=== PATIENT | male | born 1950 | race Caucasian/White ===

== ENCOUNTER 2017-06-11 08:05 | Emergency (ER) | payer MEDICARE, OTHER ==
--- NOTE | 2017-06-11 08:38 | EDM.PDOC ---
ED HPI GENERAL MEDICAL PROBLEM - General Chief Complaint: Respiratory Problem Stated Complaint: [facility] Time Seen by Provider: 06/11/17 08:08 Source of Information: Reports: Patient, Family, Other (His sister who looks after him is here) History Limitations: Reports: No Limitations - History of Present Illness INITIAL COMMENTS - FREE TEXT/NARRATIVE: This is a 67-year-old male. He lives in [place] [facility] [facility] [place]. Apparently he has a history of dementia and anxiety. This morning he says he had a difficult time sleeping last night he was up and down all night and he decided this morning to go ahead and dressed so it put on his shirt and while he was putting on his pants he became very short of breath. He then started coughing and had some midsternal chest pain. The staff tried to calm him down and they called the ambulance since he could not be calmed and with the ambulance arrived he is chest pain was resolved he was still anxious and short of breath but his pulse ox was 96% on room air. According to the sister he had gained some weight recently thought to be water weight and he is getting an extra 40 mg of Lasix for the last several days to get his weight down. The sister believes that his good weight or dry weight is about 270 and last Monday he weight 287. Patient states he does have swelling in his lower extremities and the noted to have some mild erythema but they do not seem to be painful on palpation. They've been trying to avoid any sort of medication for his anxiety since he has difficulty in his balance or they have not given him anything such as Ativan or Xanax. When he arrived to the ER he appeared to be doing well he was not short of breath had no chest pain and seemed to be his normal self. The sister does state that he has dementia and hasn't noticed any recent change. He is a poor historian. - Related Data Allergies Allergy/AdvReac Type Severity Reaction Status Date / Time No Known Allergies Allergy Verified 06/11/17 08:12 Home Meds: Home Meds Acetaminophen [Tylenol Extra Strength] 1,000 mg PO BID 06/11/17 [History] Allopurinol [Zyloprim] 300 mg PO DAILY 06/11/17 [History] Ascorbic Acid [Vitamin C] 1 tab PO DAILY 06/11/17 [History] Ca/D3/Mag Ox/Zinc/Psychiatric Np/Derik/Bor [Calcium 600-D3 Plus Caplet] 1 tab PO DAILY 06/11 [History] Calcitriol 0.5 mg PO QPM 06/11/17 [History] Carvedilol [Coreg] 25 mg PO BID 06/11/17 [History] Celecoxib [CeleBREX] 20 mg PO DAILY 06/11/17 [History] Dicyclomine [Bentyl] 20 mg PO QID 06/11/17 [History] Donepezil [Aricept] 5 mg PO DAILY 06/11/17 [History] Escitalopram [Lexapro] 20 mg PO DAILY 06/11/17 [History] Fe Gluc/Lysin Hc/E/Bcomp&C/Zn [Apetigen-Plus] 1 tab PO DAILY 06/11/17 [History] Fenofibrate Nanocrystallized [Tricor] 145 mg PO DAILY 06/11/17 [History] Fish Oil/Nichols-3 Fatty Acids [Fish Oil 1,000 MG] 1 cap PO DAILY 06/11/17 [ History] Furosemide [Lasix] 40 mg PO DAILY 06/11/17 [History] Levothyroxine [Synthroid] 10 mcg PO ASDIRECTED 06/11/17 [History] Levothyroxine [Synthroid] 88 mcg PO MOTUWETHFR 06/11/17 [History] Melatonin/Pyridoxine HCl (B6) [Melatonin 5 mg Tablet] 5 mg PO QPM 06/11/17 [ History] Omeprazole 40 mg PO DAILY 06/11/17 [History] Phenytoin Sodium Extended [Dilantin] 400 mg PO QPM 06/11/17 [History] Potassium Chloride [Klor-Con M20] 40 meq PO BID 06/11/17 [History] Psyllium Husk [Metamucil] 1 tbsp PO QAM 06/11/17 [History] Warfarin [Coumadin] 5 mg PO FR 06/11/17 [History] Warfarin [Coumadin] 7.5 mg PO SUMOTUWETHFR 06/11/17 [History] atorvaSTATin [Lipitor] 50 mg PO DAILY 06/11/17 [History] ED ROS GENERAL - Review of Systems Review Of Systems: See Below (Much of the review of systems as from the sister) Constitutional: Denies: Fever, Chills, Diaphoresis HEENT: Reports: No Symptoms Respiratory: Reports: Shortness of Breath, Cough. Denies: Wheezing, Sputum Cardiovascular: Reports: Chest Pain, Dyspnea on Exertion, Edema, Other (Not certain whether he has orthopnea that might have been the reason he was up and down all last night, patient does have a pacemaker according of the EKG looks like a ventricular pacemaker.) Endocrine: Reports: No Symptoms GI/Abdominal: Denies: Abdominal Pain, Diarrhea, Nausea, Vomiting : Reports: No Symptoms Musculoskeletal: Reports: No Symptoms Skin: Reports: Other (He does have some erythema of his lower legs and some abrasions on his right lower leg and swelling) Neurological: Reports: Confusion, Trouble Speaking (He is able to talk fluently but he is not able to string his sentences and keep train of thought very well) , Difficulty Walking, Other (He does have problems with balance) Psychiatric: Reports: Anxiety, Confusion Hematologic/Lymphatic: Reports: No Symptoms ED EXAM, GENERAL - Physical Exam Exam: See Below (Pulse ox is 98-99% on room air in the ER) Exam Limited By: Other (Patient's history and exam is slightly limited by his dementia but he seems to answer questions appropriately) General Appearance: Alert, WD/WN, No Apparent Distress Eye Exam: Bilateral Eye: Normal Inspection Ears: Normal External Exam, Normal Canal, Normal TMs Nose: Normal Inspection. No: Nasal Drainage, Clear Rhinorrhea Throat/Mouth: Normal Inspection, Normal Lips, Normal Voice, No Airway Compromise Head: Normocephalic Neck: Supple Respiratory/Chest: No Respiratory Distress, Lungs Clear, Normal Breath Sounds, Other (I do not hear any wheezing or crackles in the bases bilaterally) Cardiovascular: Regular Rate, Rhythm. No: No JVD GI/Abdominal: Soft, Non-Tender. No: Guarding, Rigid, Rebound, Tender Back Exam: Other (He is able to move around and denies any back pain) Extremities: Other (Upper extremities appear to be without abnormality, his lower extremities his lower legs bilaterally and have sort of a vasculitis appearance and some mild redness and there is swelling noted bilaterally) Neurological: Alert, Other (He is essentially oriented to person and people, he knows he is in the ER but he is not certain where any is not certain about the time of the day) Psychiatric: Anxious, Other (During the interview he essentially keeps his eyes shut when he started talking and doesn't really want to look at any one) Skin Exam: Warm, Dry EKG INTERPRETATION EKG Date: 06/11/17 Time: 08:12 EKG Interpretation Comments: The EKG shows a ventricular paced rhythm. There is no atrial fibrillation atrial flutter noted, I cannot tell due to the paced rhythm any ST or T-wave changes. There are no other acute findings. Course - Vital Signs Last Recorded V/S: Last Vital Signs Temp 97.4 F 06/11/17 08:15 Pulse 75 06/11/17 08:15 Resp 18 06/11/17 08:15 BP 183/101 H 06/11/17 08:15 Pulse Ox 98 06/11/17 08:15 - Orders/Labs/Meds Orders: Active Orders 24 hr Category Date Time Status EKG 12 Lead [EKG Documentation Completion] [RC] STAT Care 06/11/17 08:50 Active CXR [Chest 1V Frontal] [CR] Stat Exams 06/11/17 08:43 Taken Labs: Laboratory Tests 06/11/17 06/11/17 06/11/17 Range/Units 08:55 08:55 08:55 WBC 5.92 (4.23-9.07) K/mm3 RBC 4.31 L (4.63-6.08) M/mm3 Hgb 13.8 (13.7-17.5) gm/L Hct 41.1 (40.1-51.0) % MCV 95.4 H (79.0-92.2) fl MCH 32.0 (25.7-32.2) pg MCHC 33.6 (32.2-35.5) g/dl RDW Std Deviation 46.9 H (35.1-43.9) fL Plt Count 169 (163-337) K/mm3 MPV 10.0 (9.4-12.3) fl Neut % (Auto) 61.4 (34.0-67.9) % Lymph % (Auto) 19.6 L (21.8-53.1) % [place] % (Auto) 12.8 H (5.3-12.2) % Eos % (Auto) 5.2 (0.8-7.0) Baso % (Auto) 0.5 (0.1-1.2) % Neut # (Auto) 3.63 (1.78-5.38) K/mm3 Lymph # (Auto) 1.16 L (1.32-3.57) K/mm3 [place] # (Auto) 0.76 (0.30-0.82) K/mm3 Eos # (Auto) 0.31 (0.04-0.54) K/mm3 Baso # (Auto) 0.03 (0.01-0.08) K/mm3 PT 41.5 H (8.0-13.0) SECONDS INR 3.51 Sodium 143 (136-145) mEq/L Potassium 4.1 (3.5-5.1) mEq/L Chloride 104 (98-107) mEq/L Carbon Dioxide 30 (21-32) mEq/L Anion Gap 13.1 (5-15) BUN 34 H (7-18) mg/dL Creatinine 1.1 (0.7-1.3) mg/dL Est Cr Clr Drug Dosing 73.65 mL/min Estimated GFR (MDRD) > 60 (>60) mL/min BUN/Creatinine Ratio 30.9 H (14-18) Glucose 104 (80-115) mg/dL Calcium 9.3 (8.5-10.1) mg/dL Total Bilirubin 0.2 (0.2-1.0) mg/dL AST 18 (15-37) U/L ALT 27 (16-63) U/L Alkaline Phosphatase 82 (46-116) U/L Troponin I 0.017 (0.00-0.056) ng/mL NT-Pro-B Natriuret Pep 309 H (0-125) pg/mL Total Protein 7.6 (6.4-8.2) g/dl Albumin 3.9 (3.4-5.0) g/dl Globulin 3.7 gm/dL Albumin/Globulin Ratio 1.1 (1-2) Phenytoin (10.0-20.0) ug/mL 06/11/17 Range/Units 08:55 WBC (4.23-9.07) K/mm3 RBC (4.63-6.08) M/mm3 Hgb (13.7-17.5) gm/L Hct (40.1-51.0) % MCV (79.0-92.2) fl MCH (25.7-32.2) pg MCHC (32.2-35.5) g/dl RDW Std Deviation (35.1-43.9) fL Plt Count (163-337) K/mm3 MPV (9.4-12.3) fl Neut % (Auto) (34.0-67.9) % Lymph % (Auto) (21.8-53.1) % [place] % (Auto) (5.3-12.2) % Eos % (Auto) (0.8-7.0) Baso % (Auto) (0.1-1.2) % Neut # (Auto) (1.78-5.38) K/mm3 Lymph # (Auto) (1.32-3.57) K/mm3 [place] # (Auto) (0.30-0.82) K/mm3 Eos # (Auto) (0.04-0.54) K/mm3 Baso # (Auto) (0.01-0.08) K/mm3 PT (8.0-13.0) SECONDS INR Sodium (136-145) mEq/L Potassium (3.5-5.1) mEq/L Chloride (98-107) mEq/L Carbon Dioxide (21-32) mEq/L Anion Gap (5-15) BUN (7-18) mg/dL Creatinine (0.7-1.3) mg/dL Est Cr Clr Drug Dosing mL/min Estimated GFR (MDRD) (>60) mL/min BUN/Creatinine Ratio (14-18) Glucose (80-115) mg/dL Calcium (8.5-10.1) mg/dL Total Bilirubin (0.2-1.0) mg/dL AST (15-37) U/L ALT (16-63) U/L Alkaline Phosphatase (46-116) U/L Troponin I (0.00-0.056) ng/mL NT-Pro-B Natriuret Pep (0-125) pg/mL Total Protein (6.4-8.2) g/dl Albumin (3.4-5.0) g/dl Globulin gm/dL Albumin/Globulin Ratio (1-2) Phenytoin 8.0 L (10.0-20.0) ug/mL - Radiology Interpretation Free Text/Narrative:: Chest x-ray is a poor inspiratory film I do not see any acute infiltrates or congestive heart failure. - Re-Assessments/Exams Free Text/Narrative Re-Assessment/Exam: 06/11/17 10:36 I spoke to the sister and the patient regarding the lab work. His cardiac enzyme was normal. He did have a slight elevation in his BNP suggesting that he is fluid overloaded but he does not appear to be in congestive heart failure. I encouraged her to continue with the extra Lasix a day. I will let them go back to the assisted living. 06/11/17 11:19 The INR is slightly elevated and the Dilantin is slightly low but there does not appear to be any acute findings. I spoke to the patient and the sister regarding these results. Departure - Departure Time of Disposition: 10:37 Disposition: Home, Self-Care 01 Condition: Fair Clinical Impression: Shortness of breath, Anxiety, generalized Fluid overload, unspecified Qualifiers: Hypervolemia type: other Qualified Code(s): E87.79 - Other fluid overload - Discharge Information Referrals: Crystal Galdamez [employer] [Primary Care Provider] - Forms: ED Department Discharge Additional Instructions: Continue with the extra 40 mg of Lasix daily, follow-up with his family physician this week for recheck, if there is any further acute problems return to the ER. - My Orders Last 24 Hours: My Active Orders 06/11/17 08:43 CXR [Chest 1V Frontal] [CR] Stat 06/11/17 08:50 EKG 12 Lead [EKG Documentation Completion] [RC] STAT - Assessment/Plan Last 24 Hours: My Active Orders 06/11/17 08:43 CXR [Chest 1V Frontal] [CR] Stat 06/11/17 08:50 EKG 12 Lead [EKG Documentation Completion] [RC] STAT
--- NOTE | 2017-06-11 16:54 | CR ---
Chest: Portable view of the chest was obtained. Comparison: Prior chest x-ray of 03/28/16. Heart is enlarged. AICD is present. Lungs are clear. Bony structures are grossly intact. Impression: 1. Stable cardiomegaly and AICD. 2. Nothing acute is appreciated on portable chest x-ray. Diagnostic code #2
== END 2017-06-11 11:35 | disposition home or self-care (01) ==
LOC: JD.ED 08:05 → SUPCPDRO 08:05 → JD.ED 11:35
DX: F41.9 Anxiety disorder, unspecified (principal); E87.79 Other fluid overload; F03.90 Unspecified dementia, unspecified severity, without behavioral disturbance, psychotic disturbance, mood disturbance, and anxiety; Z79.01 Long term (current) use of anticoagulants; Z79.899 Other long term (current) drug therapy
CPT/HCPCS: 36415; 71045; 71045-26; 80053; 80185; 83880; 84484; 85025; 85610; 93005; 93010; 99284; 99285-25

== ENCOUNTER 2017-07-05 11:27 | Emergency (ER) | payer MEDICARE, OTHER ==
[2017-07-05] MEDS ORDERED: Sodium Chloride 0.9% 10 ML Syringe FLUSH PRN (12:04)
[2017-07-05] MEDS ORDERED: Sodium Chloride 0.9% 1,000 ML IV ONE (12:05)
--- NOTE | 2017-07-05 12:19 | EDM.PDOC ---
<Alvina Lindsey - Last Filed: 07/05/17 17:11> ED HPI GENERAL MEDICAL PROBLEM - General Chief Complaint: Neurological Problem Stated Complaint: [facility] Time Seen by Provider: 07/05/17 12:07 - Related Data Allergies Allergy/AdvReac Type Severity Reaction Status Date / Time No Known Allergies Allergy Verified 07/05/17 11:34 Home Meds: Home Meds Acetaminophen [Tylenol Extra Strength] 1,000 mg PO BID 06/11/17 [History] Allopurinol [Zyloprim] 300 mg PO DAILY 06/11/17 [History] Ascorbic Acid [Vitamin C] 500 tab PO BID 06/11/17 [History] Calcitriol 0.5 mg PO QPM 06/11/17 [History] Carvedilol [Coreg] 25 mg PO BID 06/11/17 [History] Celecoxib [CeleBREX] 20 mg PO DAILY 06/11/17 [History] Dicyclomine [Bentyl] 20 mg PO QID 06/11/17 [History] Donepezil [Aricept] 5 mg PO DAILY 06/11/17 [History] Escitalopram [Lexapro] 10 mg PO DAILY 06/11/17 [History] Fenofibrate Nanocrystallized [Tricor] 145 mg PO DAILY 06/11/17 [History] Furosemide [Lasix] 40 mg PO BID 06/11/17 [History] Levothyroxine [Synthroid] 88 mcg PO MOTUWETHFR 06/11/17 [History] Levothyroxine [Synthroid] 100 mcg PO SUSA 06/11/17 [History] Omeprazole 40 mg PO DAILY 06/11/17 [History] Phenytoin Sodium Extended [Dilantin] 400 mg PO QPM 06/11/17 [History] Potassium Chloride [Klor-Con M20] 40 meq PO BID 06/11/17 [History] Psyllium Husk [Metamucil] 1 tbsp PO QAM 06/11/17 [History] Warfarin [Coumadin] 5 mg PO SUTUTH 06/11/17 [History] Warfarin [Coumadin] 7.5 mg PO MOWEFRSA 06/11/17 [History] atorvaSTATin [Lipitor] 20 mg PO DAILY 06/11/17 [History] Albuterol Sulfate 1 dose INH Q4H PRN 07/05/17 [History] Calcium Carbonate [Calcium] 600 mg PO DAILY 07/05/17 [History] Cholecalciferol (Vitamin D3) [Vitamin D3] 1 tab PO DAILY 07/05/17 [History] Ferrous Sulfate [Feosol] 1 tab PO DAILY 07/05/17 [History] Guar Gum [Benefiber] 1 tab PO DAILY 07/05/17 [History] Metolazone 2.5 mg PO WE 07/05/17 [History] Sertraline [Zoloft] 50 mg PO DAILY 07/05/17 [History] chlordiazePOXIDE/Clidinium Br [Chlordiazepoxide-Clidinium Cap] 1 tab PO BID [History] Course - Vital Signs Last Recorded V/S: Last Vital Signs Temp 35.8 C 07/05/17 11:31 Pulse 84 07/05/17 11:31 Resp 20 07/05/17 11:31 BP 164/94 H 07/05/17 11:31 Pulse Ox 100 07/05/17 11:31 - Orders/Labs/Meds Labs: Laboratory Tests 07/05/17 07/05/17 07/05/17 Range/Units 12:25 13:00 13:00 WBC 5.14 (4.23-9.07) K/mm3 RBC 4.27 L (4.63-6.08) M/mm3 Hgb 13.9 (13.7-17.5) gm/L Hct 40.2 (40.1-51.0) % MCV 94.1 H (79.0-92.2) fl MCH 32.6 H (25.7-32.2) pg MCHC 34.6 (32.2-35.5) g/dl RDW Std Deviation 45.9 H (35.1-43.9) fL Plt Count 161 L (163-337) K/mm3 MPV 10.0 (9.4-12.3) fl Neutrophils % (Manual) 51 (40-60) % Band Neutrophils % 0 (0-10) % Lymphocytes % (Manual) 40 (20-40) % Atypical Lymphs % 0 % Monocytes % (Manual) 6 (2-10) % Eosinophils % (Manual) 2 (0.8-7.0) % Basophils % (Manual) 1 (0.2-1.2) Differential Comment See note Platelet Estimate Adequate Macrocytosis 1+ slight RBC Morph Comment Not Reportable PT (8.0-13.0) SECONDS INR APTT (22-36) SECONDS Sodium 142 (136-145) mEq/L Potassium 3.8 (3.5-5.1) mEq/L Chloride 103 (98-107) mEq/L Carbon Dioxide 27 (21-32) mEq/L Anion Gap 15.8 H (5-15) BUN 26 H (7-18) mg/dL Creatinine 1.2 (0.7-1.3) mg/dL Est Cr Clr Drug Dosing 67.51 mL/min Estimated GFR (MDRD) > 60 (>60) mL/min BUN/Creatinine Ratio 21.7 H (14-18) Glucose 96 (80-115) mg/dL Calcium 9.1 (8.5-10.1) mg/dL Total Bilirubin 0.3 (0.2-1.0) mg/dL AST 20 (15-37) U/L ALT 28 (16-63) U/L Alkaline Phosphatase 78 (46-116) U/L Troponin I < 0.017 (0.00-0.056) ng/mL NT-Pro-B Natriuret Pep (0-125) pg/mL Total Protein 7.4 (6.4-8.2) g/dl Albumin 3.9 (3.4-5.0) g/dl Globulin 3.5 gm/dL Albumin/Globulin Ratio 1.1 (1-2) Urine Color Light yellow (Yellow) Urine Appearance Clear (Clear) Urine pH 6.5 (5.0-8.0) Ur Specific [place] 1.015 (1.005-1.030) Urine Protein Negative (Negative) Urine Glucose (UA) Negative (Negative) Urine Ketones Negative (Negative) Urine Occult Blood Negative (Negative) Urine Nitrite Negative (Negative) Urine Bilirubin Negative (Negative) Urine Urobilinogen 0.2 (0.2-1.0) Ur Leukocyte Esterase Negative (Negative) Urine RBC Not seen (0-5) /hpf Urine WBC 0-5 (0-5) /hpf Ur Epithelial Cells Not seen (0-5) /hpf Urine Bacteria Few (FEW) /hpf Urine Mucus Few (FEW) /hpf 07/05/17 07/05/17 Range/Units 13:00 13:00 WBC (4.23-9.07) K/mm3 RBC (4.63-6.08) M/mm3 Hgb (13.7-17.5) gm/L Hct (40.1-51.0) % MCV (79.0-92.2) fl MCH (25.7-32.2) pg MCHC (32.2-35.5) g/dl RDW Std Deviation (35.1-43.9) fL Plt Count (163-337) K/mm3 MPV (9.4-12.3) fl Neutrophils % (Manual) (40-60) % Band Neutrophils % (0-10) % Lymphocytes % (Manual) (20-40) % Atypical Lymphs % % Monocytes % (Manual) (2-10) % Eosinophils % (Manual) (0.8-7.0) % Basophils % (Manual) (0.2-1.2) Differential Comment Platelet Estimate Macrocytosis RBC Morph Comment PT 44.6 H (8.0-13.0) SECONDS INR 4.11 APTT 47 H (22-36) SECONDS Sodium (136-145) mEq/L Potassium (3.5-5.1) mEq/L Chloride (98-107) mEq/L Carbon Dioxide (21-32) mEq/L Anion Gap (5-15) BUN (7-18) mg/dL Creatinine (0.7-1.3) mg/dL Est Cr Clr Drug Dosing mL/min Estimated GFR (MDRD) (>60) mL/min BUN/Creatinine Ratio (14-18) Glucose (80-115) mg/dL Calcium (8.5-10.1) mg/dL Total Bilirubin (0.2-1.0) mg/dL AST (15-37) U/L ALT (16-63) U/L Alkaline Phosphatase (46-116) U/L Troponin I (0.00-0.056) ng/mL NT-Pro-B Natriuret Pep 357 H (0-125) pg/mL Total Protein (6.4-8.2) g/dl Albumin (3.4-5.0) g/dl Globulin gm/dL Albumin/Globulin Ratio (1-2) Urine Color (Yellow) Urine Appearance (Clear) Urine pH (5.0-8.0) Ur Specific [place] (1.005-1.030) Urine Protein (Negative) Urine Glucose (UA) (Negative) Urine Ketones (Negative) Urine Occult Blood (Negative) Urine Nitrite (Negative) Urine Bilirubin (Negative) Urine Urobilinogen (0.2-1.0) Ur Leukocyte Esterase (Negative) Urine RBC (0-5) /hpf Urine WBC (0-5) /hpf Ur Epithelial Cells (0-5) /hpf Urine Bacteria (FEW) /hpf Urine Mucus (FEW) /hpf Meds: Medications Discontinued Medications Generic Name Dose Route Start Last Admin Trade Name Freq PRN Reason Stop Dose Admin Sodium Chloride 1,000 mls @ 100 mls/hr 07/05/17 12:05 07/05/17 12:29 Normal Saline IV 07/05/17 22:04 100 mls/hr ONETIME ONE Administration Sodium Chloride 10 ml 07/05/17 12:04 07/05/17 12:29 Saline Flush FLUSH 10 ml ASDIRECTED PRN Administration Keep Vein Open Departure - Departure Time of Disposition: 17:11 Disposition: DC/Tfer to Longterm Care [facility] Condition: Good Clinical Impression: TIA (transient ischemic attack) Qualifiers: Transient cerebral ischemia type: unspecified Qualified Code(s): G45.9 - Transient cerebral ischemic attack, unspecified - Discharge Information Instructions: Transient Ischemic Attack Referrals: Crystal Galdamez [facility] [Primary Care Provider] - Forms: ED Department Discharge Additional Instructions: Hold Coumadin for 2 days. Follow up with your primary care provider on or Monday. Return to ED if your symptoms persist or worsen. <Rita Clayton - Last Filed: 07/06/17 14:00> ED HPI GENERAL MEDICAL PROBLEM - General Source of Information: Reports: Patient, Family (sister) History Limitations: Reports: Altered Mental Status (confused) - History of Present Illness INITIAL COMMENTS - FREE TEXT/NARRATIVE: 67-year-old male arrives via [facility] for evaluation and treatment of increased confusion. Reportedly around 0700 this morning the patient became confused and had reported garbled speech. He talked to his sister around 0900 and she felt that he was agitated. She reported to him that he is complaining of something on the right side of his head. They took him to the [facility] and he was sent to us for further management care. Patient reports that he felt that his balance was off and he is having difficulty walking. Per [facility] his symptoms have resolved. He has a past medical history of dementia and anxiety. Is unclear what his baseline is abnormally. Currently to me in the ER he is denying any headaches, nausea, vomiting, vision changes, chest pain, abdominal pain or shortness of breath. Upon my evaluation the patient's does seem more confused. I do feel that his speech is slightly garbled. Patient is on Coumadin. Reportedly has been taking this as prescribed. Patient had a head CT done 2 weeks ago at [place] for mood changes. 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 No known recent carotid artery ultrasounds. Bilateral Knee Pain Score (Numeric/FACES): 3 Past Medical History HEENT History: Reports: Cataract, Impaired Vision Cardiovascular History: Reports: Afib Respiratory History: Reports: SOB Gastrointestinal History: Reports: GERD Musculoskeletal History: Reports: Arthritis, Gout Neurological History: Reports: Seizure Psychiatric History: Reports: Anxiety, Dementia, Depression Endocrine/Metabolic History: Reports: Hypothyroidism - Past Surgical History Other Cardiovascular Surgeries/Procedures: pace maker and defibrillator GI Surgical History: Reports: Colonoscopy, Hernia Repair/Other Social & Family History - Tobacco Use Smoking Status *Q: Former Smoker Used Tobacco, but Quit: Yes Month Tobacco Last Used: 20 years Second Hand Smoke Exposure: No - Caffeine Use Caffeine Use: Reports: Coffee, Soda - Recreational Drug Use Recreational Drug Use: No ED ROS GENERAL - Review of Systems Review Of Systems: See Below Respiratory: Denies: Shortness of Breath Cardiovascular: Denies: Chest Pain GI/Abdominal: Denies: Abdominal Pain, Nausea, Vomiting Neurological: Reports: Change in Speech. Denies: Headache ED EXAM, NEURO - Physical Exam Exam: See Below Exam Limited By: No Limitations General Appearance: Alert, WD/WN, No Apparent Distress Eye Exam: Bilateral Eye: EOMI, Normal Inspection, PERRL (Pupils are equal and round with a very slight sluggish reaction to light.) Ears: Normal External Exam Nose: Normal Inspection Throat/Mouth: Normal Inspection, Normal Lips, Normal Voice, No Airway Compromise Respiratory/Chest: No Respiratory Distress, Lungs Clear, Normal Breath Sounds Cardiovascular: Normal Peripheral Pulses, Regular Rate, Rhythm, No Murmur GI/Abdominal: Soft, Non-Tender Neurological: Alert, Normal Mood/Affect, Normal Dorsiflexion, CN II-XII Intact, Normal Plantar Flexion, Other (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 Able to perform heel to navarro testing. This is slow and deliberate but he does perform this successfully.) Psychiatric: Normal Affect, Normal Mood Skin Exam: Warm, Dry, Normal Color EKG INTERPRETATION EKG Date: 07/05/17 Time: 12:10 Rhythm: Other (ventricular paced complexes) Rate (Beats/Min): 70 Comparison: No Change EKG Interpretation Comments: ventricular paced completes. No chagne from previous EKG on file 2017. Reviewed by myself and Dr. Gomez. Course - Orders/Labs/Meds Labs: Laboratory Tests 07/05/17 07/05/17 07/05/17 Range/Units 12:25 13:00 13:00 WBC 5.14 (4.23-9.07) K/mm3 RBC 4.27 L (4.63-6.08) M/mm3 Hgb 13.9 (13.7-17.5) gm/L Hct 40.2 (40.1-51.0) % MCV 94.1 H (79.0-92.2) fl MCH 32.6 H (25.7-32.2) pg MCHC 34.6 (32.2-35.5) g/dl RDW Std Deviation 45.9 H (35.1-43.9) fL Plt Count 161 L (163-337) K/mm3 MPV 10.0 (9.4-12.3) fl Neutrophils % (Manual) 51 (40-60) % Band Neutrophils % 0 (0-10) % Lymphocytes % (Manual) 40 (20-40) % Atypical Lymphs % 0 % Monocytes % (Manual) 6 (2-10) % Eosinophils % (Manual) 2 (0.8-7.0) % Basophils % (Manual) 1 (0.2-1.2) Differential Comment See note Platelet Estimate Adequate Macrocytosis 1+ slight RBC Morph Comment Not Reportable PT (8.0-13.0) SECONDS INR APTT (22-36) SECONDS Sodium 142 (136-145) mEq/L Potassium 3.8 (3.5-5.1) mEq/L Chloride 103 (98-107) mEq/L Carbon Dioxide 27 (21-32) mEq/L Anion Gap 15.8 H (5-15) BUN 26 H (7-18) mg/dL Creatinine 1.2 (0.7-1.3) mg/dL Est Cr Clr Drug Dosing 67.51 mL/min Estimated GFR (MDRD) > 60 (>60) mL/min BUN/Creatinine Ratio 21.7 H (14-18) Glucose 96 (80-115) mg/dL Calcium 9.1 (8.5-10.1) mg/dL Total Bilirubin 0.3 (0.2-1.0) mg/dL AST 20 (15-37) U/L ALT 28 (16-63) U/L Alkaline Phosphatase 78 (46-116) U/L Troponin I < 0.017 (0.00-0.056) ng/mL NT-Pro-B Natriuret Pep (0-125) pg/mL Total Protein 7.4 (6.4-8.2) g/dl Albumin 3.9 (3.4-5.0) g/dl Globulin 3.5 gm/dL Albumin/Globulin Ratio 1.1 (1-2) Urine Color Light yellow (Yellow) Urine Appearance Clear (Clear) Urine pH 6.5 (5.0-8.0) Ur Specific [place] 1.015 (1.005-1.030) Urine Protein Negative (Negative) Urine Glucose (UA) Negative (Negative) Urine Ketones Negative (Negative) Urine Occult Blood Negative (Negative) Urine Nitrite Negative (Negative) Urine Bilirubin Negative (Negative) Urine Urobilinogen 0.2 (0.2-1.0) Ur Leukocyte Esterase Negative (Negative) Urine RBC Not seen (0-5) /hpf Urine WBC 0-5 (0-5) /hpf Ur Epithelial Cells Not seen (0-5) /hpf Urine Bacteria Few (FEW) /hpf Urine Mucus Few (FEW) /hpf 18 07/05/17 Range/Units 13:00 13:00 WBC (4.23-9.07) K/mm3 RBC (4.63-6.08) M/mm3 Hgb (13.7-17.5) gm/L Hct (40.1-51.0) % MCV (79.0-92.2) fl MCH (25.7-32.2) pg MCHC (32.2-35.5) g/dl RDW Std Deviation (35.1-43.9) fL Plt Count (163-337) K/mm3 MPV (9.4-12.3) fl Neutrophils % (Manual) (40-60) % Band Neutrophils % (0-10) % Lymphocytes % (Manual) (20-40) % Atypical Lymphs % % Monocytes % (Manual) (2-10) % Eosinophils % (Manual) (0.8-7.0) % Basophils % (Manual) (0.2-1.2) Differential Comment Platelet Estimate Macrocytosis RBC Morph Comment PT 44.6 H (8.0-13.0) SECONDS INR 4.11 APTT 47 H (22-36) SECONDS Sodium (136-145) mEq/L Potassium (3.5-5.1) mEq/L Chloride (98-107) mEq/L Carbon Dioxide (21-32) mEq/L Anion Gap (5-15) BUN (7-18) mg/dL Creatinine (0.7-1.3) mg/dL Est Cr Clr Drug Dosing mL/min Estimated GFR (MDRD) (>60) mL/min BUN/Creatinine Ratio (14-18) Glucose (80-115) mg/dL Calcium (8.5-10.1) mg/dL Total Bilirubin (0.2-1.0) mg/dL AST (15-37) U/L ALT (16-63) U/L Alkaline Phosphatase (46-116) U/L Troponin I (0.00-0.056) ng/mL NT-Pro-B Natriuret Pep 357 H (0-125) pg/mL Total Protein (6.4-8.2) g/dl Albumin (3.4-5.0) g/dl Globulin gm/dL Albumin/Globulin Ratio (1-2) Urine Color (Yellow) Urine Appearance (Clear) Urine pH (5.0-8.0) Ur Specific [place] (1.005-1.030) Urine Protein (Negative) Urine Glucose (UA) (Negative) Urine Ketones (Negative) Urine Occult Blood (Negative) Urine Nitrite (Negative) Urine Bilirubin (Negative) Urine Urobilinogen (0.2-1.0) Ur Leukocyte Esterase (Negative) Urine RBC (0-5) /hpf Urine WBC (0-5) /hpf Ur Epithelial Cells (0-5) /hpf Urine Bacteria (FEW) /hpf Urine Mucus (FEW) /hpf - Radiology Interpretation Free Text/Narrative:: Head CT Technique: Multiple axial sections through the brain were obtained. Intravenous contrast was not utilized. Comparison: No prior intracranial imaging. Findings: Diffuse intracranial calcification is seen within the white matter of both cerebellar hemispheres, throughout the basal ganglia and within portions of the periventricular white matter. Diminished density is noted within the periventricular white matter and subcortical white matter compatible with small vessel ischemic demyelination change. Ventricles along with basal cisterns and sulci over convexities are within normal limits for the patient's age. No acute calvarial abnormality is seen. Impression: 1. Extensive white matter and basal ganglia calcification. Differential is fairly extensive but calcium metabolism disorders should be excluded. Some congenital syndromes can cause this finding. Basal ganglia calcification can be caused by infection but I feel that this is unlikely given its diffuse nature. Some forms of chemotherapy can cause intracranial calcifications. 2. Senescent change as noted above. 3. No acute intracranial abnormality is otherwise seen. Chest: Portable view of the chest was obtained. Comparison: Prior chest x-ray of 06/11/17. Heart is enlarged. AICD is noted. Lungs are clear. Bony structures are grossly intact. Impression: 1. Cardiomegaly and AICD. 2. Nothing acute is seen. No significant change is seen from previous study. Carotid ultrasound: Duplex and color flow imaging was obtained of the carotid arteries. Mild amount of diffuse plaque is seen on both sides, worse on the left side. Plaque is within the carotid bulbs and within the proximal internal carotid arteries. Plaque is mostly calcified and on the left side showing irregular surface margins. Plaque on the right side has mostly smooth surface margins. Right side: CCA has a peak systolic velocity of 0.88 m/sec. ICA has a peak systolic velocity of 0.80 m/sec and peak end-diastolic velocity of 0.29 m/sec. ECA has a peak systolic velocity of 1.35 m/sec. ICA/CCA ratio is 0.9. Vertebral artery has a peak systolic velocity of 0.62 m/s. Left side: CCA has a peak systolic velocity of 1.07 m/sec. ICA has a peak systolic velocity of 0.77 m/sec and peak end-diastolic velocity of 0.22 m/sec. ECA has a peak systolic velocity of 1.01 m/sec. ICA/CCA ratio is 0.72. Vertebral artery has a peak systolic velocity of 0.53 m/s. Impression: 1. Plaque as described above. Velocity measurements within both internal carotid arteries correspond to stenosis in the range of 1-49%. - Re-Assessments/Exams Free Text/Narrative Re-Assessment/Exam: 07/05/17 15:09 labs and imaging have returned. Case discussed with dr. Gomez. Will hold coumadin x 2 days with follow-up with PCP Monday. Very possible that the patient did have a TIA. He is already on Coumadin this is actually super therapeutic. He had an echocardiogram done to 3 days ago per his sister. He cannot have an MRI due to his pacemaker. The benefit of admitting to him to the hospital would be for a carotid artery ultrasound. We are able to get that here in the ER today. Plan will be to get the ultrasound. The ER and will discharge him home as per his sister he is back to his baseline and has been so since entering the ER. 07/05/17 17:00 Reviewed the ultrasound results the patient and his sister. Plan will be hold his Coumadin for the next 2 days. Follow-up with [facility] afternoon or Monday for recheck. He is to return to the ER for symptoms change or worsen. Patient and sister are in agreement and understanding of treatment plan.
--- NOTE | 2017-07-05 13:06 | CT ---
Head CT Technique: Multiple axial sections through the brain were obtained. Intravenous contrast was not utilized. Comparison: No prior intracranial imaging. Findings: Diffuse intracranial calcification is seen within the white matter of both cerebellar hemispheres, throughout the basal ganglia and within portions of the periventricular white matter. Diminished density is noted within the periventricular white matter and subcortical white matter compatible with small vessel ischemic demyelination change. Ventricles along with basal cisterns and sulci over convexities are within normal limits for the patient's age. No acute calvarial abnormality is seen. Impression: 1. Extensive white matter and basal ganglia calcification. Differential is fairly extensive but calcium metabolism disorders should be excluded. Some congenital syndromes can cause this finding. Basal ganglia calcification can be caused by infection but I feel that this is unlikely given its diffuse nature. Some forms of chemotherapy can cause intracranial calcifications. 2. Senescent change as noted above. 3. No acute intracranial abnormality is otherwise seen. Diagnostic code #3
--- NOTE | 2017-07-05 15:46 | CR ---
Chest: Portable view of the chest was obtained. Comparison: Prior chest x-ray of 06/11/17. Heart is enlarged. AICD is noted. Lungs are clear. Bony structures are grossly intact. Impression: 1. Cardiomegaly and AICD. 2. Nothing acute is seen. No significant change is seen from previous study. Diagnostic code #2
--- NOTE | 2017-07-05 16:20 | US ---
Carotid ultrasound: Duplex and color flow imaging was obtained of the carotid arteries. Mild amount of diffuse plaque is seen on both sides, worse on the left side. Plaque is within the carotid bulbs and within the proximal internal carotid arteries. Plaque is mostly calcified and on the left side showing irregular surface margins. Plaque on the right side has mostly smooth surface margins. Right side: CCA has a peak systolic velocity of 0.88 m/sec. ICA has a peak systolic velocity of 0.80 m/sec and peak end-diastolic velocity of 0.29 m/sec. ECA has a peak systolic velocity of 1.35 m/sec. ICA/CCA ratio is 0.9. Vertebral artery has a peak systolic velocity of 0.62 m/s. Left side: CCA has a peak systolic velocity of 1.07 m/sec. ICA has a peak systolic velocity of 0.77 m/sec and peak end-diastolic velocity of 0.22 m/sec. ECA has a peak systolic velocity of 1.01 m/sec. ICA/CCA ratio is 0.72. Vertebral artery has a peak systolic velocity of 0.53 m/s. Impression: 1. Plaque as described above. Velocity measurements within both internal carotid arteries correspond to stenosis in the range of 1-49%. Diagnostic code #3
== END 2017-07-05 17:25 ==
LOC: JD.ED 11:27
DX: G45.9 Transient cerebral ischemic attack, unspecified (principal); I48.91 Unspecified atrial fibrillation; E03.9 Hypothyroidism, unspecified; Z79.899 Other long term (current) drug therapy; Z79.01 Long term (current) use of anticoagulants
CPT/HCPCS: 36415; 70450; 71045; 80053; 81001; 83880; 84484; 85025; 85610; 85730; 93005; 93880; 96360; 96361; 99285; J7040; J7050; 93010; 99284

== ENCOUNTER 2018-07-23 15:03 | Inpatient (IN) | payer MEDICARE, OTHER ==
[~2018-07-23 15:03] MED LIST: Oseltamivir 75 MG Cap PO SCH
[2018-07-23] MEDS ORDERED: Sodium Chloride 0.9% 10 ML Syringe FLUSH PRN (15:47)
[2018-07-23] MEDS ORDERED: Albuterol/Ipratropium 3.0-0.5 MG/3 ML Neb Soln NEB ONE (15:47)
--- NOTE | 2018-07-23 16:37 | EDM.PDOC ---
ED HPI GENERAL MEDICAL PROBLEM - General Chief Complaint: Respiratory Problem Stated Complaint: [facility] Time Seen by Provider: 07/23/18 15:08 Source of Information: Reports: Patient, RN Notes Reviewed - History of Present Illness INITIAL COMMENTS - FREE TEXT/NARRATIVE: 68-year-old male has been brought here by [facility] for evaluation of shortness of breath. Patient states he has been short of breath for several weeks but worse the last few days. He has been coughing. Not sure if he's been running fever or chills. He states that he has been sitting up in a chair more at night because of his difficulty breathing. Patient is not able to give me details regarding his medical history. At the [facility] which is assisted living facility. Looking at his medications he does take medication for hypertension, congestive heart failure, hypothyroidism Dilantin presumably for seizure disorder, albuterol nebs for wheezing and also noted to be on warfarin, reason unclear sertraline, omeprazole and other meds as listed. - Related Data Allergies Allergy/AdvReac Type Severity Reaction Status Date / Time No Known Allergies Allergy Verified 07/23/18 15:10 Home Meds: Home Meds Acetaminophen [Tylenol Extra Strength] 1,000 mg PO BID 06/11/17 [History] Allopurinol [Zyloprim] 300 mg PO DAILY 06/11/17 [History] Ascorbic Acid [Vitamin C] 500 tab PO BID 06/11/17 [History] Calcitriol 0.5 mg PO QPM 06/11/17 [History] Carvedilol [Coreg] 25 mg PO BID 06/11/17 [History] Celecoxib [CeleBREX] 20 mg PO DAILY 06/11/17 [History] Dicyclomine [Bentyl] 20 mg PO QID 06/11/17 [History] Donepezil [Aricept] 5 mg PO DAILY 06/11/17 [History] Escitalopram [Lexapro] 10 mg PO DAILY 06/11/17 [History] Fenofibrate Nanocrystallized [Tricor] 145 mg PO DAILY 06/11/17 [History] Furosemide [Lasix] 40 mg PO BID 06/11/17 [History] Levothyroxine [Synthroid] 88 mcg PO MOTUWETHFR 06/11/17 [History] Omeprazole 40 mg PO DAILY 06/11/17 [History] Phenytoin Sodium Extended [Dilantin] 400 mg PO QPM 06/11/17 [History] Potassium Chloride [Klor-Con M20] 40 meq PO BID 06/11/17 [History] Warfarin [Coumadin] 5 mg PO SUMOTUTHFR 06/11/17 [History] Warfarin [Coumadin] 7.5 mg PO WESA 06/11/17 [History] atorvaSTATin [Lipitor] 20 mg PO DAILY 06/11/17 [History] Albuterol Sulfate 1 dose INH Q4H PRN 07/05/17 [History] Calcium Carbonate [Calcium] 600 mg PO DAILY 07/05/17 [History] Cholecalciferol (Vitamin D3) [Vitamin D3] 1 tab PO DAILY 07/05/17 [History] Ferrous Sulfate [Feosol] 1 tab PO DAILY 07/05/17 [History] Sertraline [Zoloft] 50 mg PO DAILY 07/05/17 [History] LORazepam [Ativan] 0.5 mg PO DAILY 07/23/18 [History] Past Medical History HEENT History: Reports: Cataract, Impaired Vision Cardiovascular History: Reports: Afib, Heart Failure, High Cholesterol, Hypertension Respiratory History: Reports: SOB Gastrointestinal History: Reports: GERD Other Gastrointestinal History: incontinent of bowel. Genitourinary History: Reports: Urinary Incontinence Musculoskeletal History: Reports: Arthritis, Gout Neurological History: Reports: Seizure Psychiatric History: Reports: Anxiety, Dementia, Depression Endocrine/Metabolic History: Reports: Hypothyroidism Hematologic History: Reports: Anemia Dermatologic History: Reports: Eczema - Infectious Disease History Infectious Disease History: Reports: Chicken Pox, Measles, Mumps - Past Surgical History HEENT Surgical History: Reports: Cataract Surgery Other Cardiovascular Surgeries/Procedures: pace maker and defibrillator GI Surgical History: Reports: Colonoscopy, Hernia Repair/Other Social & Family History - Tobacco Use Smoking Status *Q: Never Smoker - Caffeine Use Caffeine Use: Reports: Coffee, Soda - Recreational Drug Use Recreational Drug Use: No ED ROS GENERAL - Review of Systems Review Of Systems: See Below Constitutional: Reports: Chills. Denies: Fever HEENT: Reports: Rhinitis. Denies: Throat Pain Respiratory: Reports: Shortness of Breath (Mild), Wheezing, Cough Cardiovascular: Reports: Edema (Bilateral, patient unsure of any worse than usual). Denies: Chest Pain GI/Abdominal: Denies: Abdominal Pain, Nausea, Vomiting Musculoskeletal: Reports: Leg Pain (Mild bilateral) Skin: Reports: No Symptoms Neurological: Reports: Dizziness (Chronic), Difficulty Walking, Weakness ( Generalized) ED EXAM, GENERAL - Physical Exam Exam: See Below General Appearance: Alert, Moderate Distress Eye Exam: Bilateral Eye: PERRL Nose: Normal Inspection Throat/Mouth: Normal Inspection Head: Atraumatic Neck: Supple, Other (No JVD sitting position) Respiratory/Chest: Respiratory Distress Cardiovascular: Regular Rate, Rhythm GI/Abdominal: Soft, Non-Tender, Distended Back Exam: No: CVA Tenderness (L), CVA Tenderness (R) Extremities: Pedal Edema (Moderate bilateral), Leg Pain (I'll bilateral). No: Increased Warmth Neurological: Alert, Other (Focal weakness) Skin Exam: Warm, Dry, Normal Color EKG INTERPRETATION EKG Date: 07/23/18 Rhythm: Other (Paced rhythm) Rate (Beats/Min): 70 QRS: Other (Appropriate conduction delay for paced rhythm) Course - Vital Signs Last Recorded V/S: Last Vital Signs Temp 97.6 F 07/23/18 20:00 Pulse 72 07/23/18 20:57 Resp 26 H 07/23/18 20:00 BP 162/85 H 07/23/18 20:57 Pulse Ox 97 07/23/18 20:00 - Orders/Labs/Meds Orders: Active Orders 24 hr Category Date Time Status BIPAP [RT BiPAP/CPAP] [RC] ASDIRECTED Care 07/23/18 18:33 Active Oxygen Therapy [RC] ASDIRECTED Care 07/23/18 15:44 Active Peripheral IV Care [RC] Q2HR Care 07/23/18 15:47 Active Sodium Chloride 0.9% [Saline Flush] Med 07/23/18 15:47 Active 10 ml FLUSH ASDIRECTED PRN Peripheral IV Insertion Adult [OM.PC] Stat Oth 07/23/18 15:44 Ordered Medication Orders Albuterol/Ipratropium (Duoneb 3.0-0.5 Mg/3 Ml) 3 ml NEB QID PRN PRN Reason: Shortness of Breath Allopurinol (Zyloprim) 300 mg PO DAILY [facility] Calcitriol (Rocaltrol) 0.5 mcg PO QPM [facility] Carvedilol (Coreg) 12.5 mg PO BID [facility] Last Admin: 07/23/18 20:57 Dose: 12.5 mg Citalopram Hydrobromide (Celexa) 20 mg PO DAILY [facility] Donepezil HCl (Aricept) 5 mg PO DAILY [facility] Fenofibrate (Tricor) 145 mg PO DAILY [facility] Ferrous Sulfate (Ferrous Sulfate) 325 mg PO DAILY [facility] Furosemide 100 mg/ Sodium (Chloride) 100 mls @ 4 mls/hr IV TITRATE [facility]; Protocol Last Admin: 07/23/18 18:58 Dose: 4 mg/hr, 4 mls/hr Levothyroxine Sodium (Synthroid) 88 mcg PO [id number]@0600 [facility] Lorazepam (Ativan) 0.5 mg PO DAILY [facility] Last Admin: 07/23/18 20:54 Dose: 0.5 mg Lorazepam (Ativan) 1 mg IVPUSH Q8H PRN PRN Reason: Anxiety Morphine Sulfate (Morphine) 2 mg IVPUSH Q4H PRN PRN Reason: Shortness of Breath Oseltamivir Phosphate (Tamiflu) 75 mg PO BID [facility] Phenytoin Sodium (Phenytoin) 400 mg PO QPM [facility] Sertraline HCl (Zoloft) 50 mg PO DAILY [facility] Simvastatin (Zocor) 20 mg PO BEDTIME [facility] Sodium Chloride (Saline Flush) 10 ml FLUSH ASDIRECTED PRN PRN Reason: Keep Vein Open Last Admin: 07/23/18 16:23 Dose: 10 ml Labs: Laboratory Tests 07/23/18 07/23/18 07/23/18 Range/Units 16:23 16:23 16:23 WBC 10.67 H (4.23-9.07) K/mm3 RBC 3.62 L (4.63-6.08) M/mm3 Hgb 10.6 L (13.7-17.5) gm/L Hct 34.0 L (40.1-51.0) % MCV 93.9 H (79.0-92.2) fl MCH 29.3 (25.7-32.2) pg MCHC 31.2 L (32.2-35.5) g/dl RDW Std Deviation 45.9 H (35.1-43.9) fL Plt Count 339 H (163-337) K/mm3 MPV 8.6 L (9.4-12.3) fl Neutrophils % (Manual) 85 H (40-60) % Band Neutrophils % 0 (0-10) % Lymphocytes % (Manual) 6 L (20-40) % Atypical Lymphs % 0 % Monocytes % (Manual) 8 (2-10) % Eosinophils % (Manual) 1 (0.8-7.0) % Basophils % (Manual) 0 L (0.2-1.2) Platelet Estimate Adequate Hypochromasia 2+ moderate Anisocytosis 2+ moderate RBC Morph Comment Abnormal PT (9.5-12.1) SECONDS INR Puncture Site ABG pH (7.35-7.45) ABG pCO2 (35.0-45.0) mmHg ABG pO2 (80.0-100.0) mmHg ABG HCO3 (22.0-26.0) meq/L ABG O2 Saturation (96.0-97.0) % ABG Base Excess (-2-2.0) Gilbert Test A-a Gradient mmHg O2 Delivery Device Oxygen Flow Rate FiO2 (21.00-100.00) % Sodium 139 (136-145) mEq/L Potassium 5.2 H (3.5-5.1) mEq/L Chloride 101 (98-107) mEq/L Carbon Dioxide 29 (21-32) mEq/L Anion Gap 14.2 (5-15) BUN 33 H (7-18) mg/dL Creatinine 1.0 (0.7-1.3) mg/dL Est Cr Clr Drug Dosing 79.90 mL/min Estimated GFR (MDRD) > 60 (>60) mL/min BUN/Creatinine Ratio 33.0 H (14-18) Glucose 109 (80-115) mg/dL Calcium 8.8 (8.5-10.1) mg/dL Total Bilirubin 0.4 (0.2-1.0) mg/dL AST 19 (15-37) U/L ALT 32 (16-63) U/L Alkaline Phosphatase 82 (46-116) U/L NT-Pro-B Natriuret Pep 943 H (0-125) pg/mL Total Protein 7.3 (6.4-8.2) g/dl Albumin 2.5 L (3.4-5.0) g/dl Globulin 4.8 gm/dL Albumin/Globulin Ratio 0.5 L (1-2) Mycoplasma pneumon IgM Negative (NEGATIVE) 07/23/18 07/23/18 Range/Units 16:23 18:29 WBC (4.23-9.07) K/mm3 RBC (4.63-6.08) M/mm3 Hgb (13.7-17.5) gm/L Hct (40.1-51.0) % MCV (79.0-92.2) fl MCH (25.7-32.2) pg MCHC (32.2-35.5) g/dl RDW Std Deviation (35.1-43.9) fL Plt Count (163-337) K/mm3 MPV (9.4-12.3) fl Neutrophils % (Manual) (40-60) % Band Neutrophils % (0-10) % Lymphocytes % (Manual) (20-40) % Atypical Lymphs % % Monocytes % (Manual) (2-10) % Eosinophils % (Manual) (0.8-7.0) % Basophils % (Manual) (0.2-1.2) Platelet Estimate Hypochromasia Anisocytosis RBC Morph Comment PT 63.8 H* (9.5-12.1) SECONDS INR 6.06 H* Puncture Site Lt radial ABG pH 7.33 L (7.35-7.45) ABG pCO2 55.1 H (35.0-45.0) mmHg ABG pO2 74.0 L (80.0-100.0) mmHg ABG HCO3 27.9 H (22.0-26.0) meq/L ABG O2 Saturation 92.4 L (96.0-97.0) % ABG Base Excess 1.6 (-2-2.0) Gilbert Test Positive A-a Gradient 36 mmHg O2 Delivery Device Nasal cannula Oxygen Flow Rate 2.0 FiO2 28.00 (21.00-100.00) % Sodium (136-145) mEq/L Potassium (3.5-5.1) mEq/L Chloride (98-107) mEq/L Carbon Dioxide (21-32) mEq/L Anion Gap (5-15) BUN (7-18) mg/dL Creatinine (0.7-1.3) mg/dL Est Cr Clr Drug Dosing mL/min Estimated GFR (MDRD) (>60) mL/min BUN/Creatinine Ratio (14-18) Glucose (80-115) mg/dL Calcium (8.5-10.1) mg/dL Total Bilirubin (0.2-1.0) mg/dL AST (15-37) U/L ALT (16-63) U/L Alkaline Phosphatase (46-116) U/L NT-Pro-B Natriuret Pep (0-125) pg/mL Total Protein (6.4-8.2) g/dl Albumin (3.4-5.0) g/dl Globulin gm/dL Albumin/Globulin Ratio (1-2) Mycoplasma pneumon IgM (NEGATIVE) Meds: Medications Generic Name Dose Route Start Last Admin Trade Name Freq PRN Reason Stop Dose Admin Albuterol/Ipratropium 3 ml 07/23/18 19:42 Duoneb 3.0-0.5 Mg/3 Ml NEB QID PRN Shortness of Breath Allopurinol 300 mg 07/24/18 09:00 Zyloprim PO DAILY [facility] Calcitriol 0.5 mcg 07/24/18 18:00 Rocaltrol PO QPM [facility] Carvedilol 12.5 mg 07/23/18 21:00 07/23/18 20:57 Coreg PO 12.5 mg BID [facility] Administration Citalopram Hydrobromide 20 mg 07/24/18 09:00 Celexa PO DAILY [facility] Donepezil HCl 5 mg 07/24/18 09:00 Aricept PO DAILY [facility] Fenofibrate 145 mg 07/24/18 09:00 Tricor PO DAILY [facility] Ferrous Sulfate 325 mg 07/24/18 09:00 Ferrous Sulfate PO DAILY [facility] Furosemide 100 mg/ Sodium 100 mls @ 4 mls/hr 07/23/18 18:45 07/23/18 18:58 Chloride IV 4 mg/hr TITRATE [facility] 4 mls/hr Administration Protocol 4 MG/HR Levothyroxine Sodium 88 mcg 07/24/18 06:00 Synthroid PO [id number]@0600 [facility] Lorazepam 0.5 mg 07/23/18 19:30 07/23/18 20:54 Ativan PO 0.5 mg DAILY [facility] Administration Lorazepam 1 mg 07/23/18 21:38 Ativan IVPUSH Q8H PRN Anxiety Morphine Sulfate 2 mg 07/23/18 21:37 Morphine IVPUSH Q4H PRN Shortness of Breath Oseltamivir Phosphate 75 mg 07/24/18 09:00 Tamiflu PO BID [facility] Phenytoin Sodium 400 mg 07/24/18 18:00 Phenytoin PO QPM [facility] Sertraline HCl 50 mg 07/24/18 09:00 Zoloft PO DAILY [facility] Simvastatin 20 mg 07/24/18 21:00 Zocor PO BEDTIME [facility] Sodium Chloride 10 ml 07/23/18 15:47 07/23/18 16:23 Saline Flush FLUSH 10 ml ASDIRECTED PRN Administration Keep Vein Open Discontinued Medications Generic Name Dose Route Start Last Admin Trade Name Freq PRN Reason Stop Dose Admin Albuterol/Ipratropium 3 ml 07/23/18 15:47 07/23/18 16:00 Duoneb 3.0-0.5 Mg/3 Ml NEB 07/23/18 15:48 3 ml ONETIME ONE Administration Furosemide 40 mg 07/23/18 18:16 07/23/18 18:41 Lasix IVPUSH 07/23/18 18:17 40 mg NOW ONE Administration Lorazepam 1 mg 07/23/18 18:10 07/23/18 18:18 Ativan IVPUSH 07/23/18 18:11 1 mg ONETIME ONE Administration Lorazepam 1 mg 07/23/18 21:14 Ativan IVPUSH 07/23/18 21:15 ONETIME ONE Morphine Sulfate 2 mg 07/23/18 21:13 07/23/18 21:24 Morphine IVPUSH 07/23/18 21:14 2 mg ONETIME ONE Administration Oseltamivir Phosphate 75 mg 07/23/18 18:16 07/23/18 18:41 Tamiflu PO 07/23/18 18:17 75 mg ONETIME ONE Administration Oseltamivir Phosphate 75 mg 07/23/18 09:00 07/23/18 21:15 Tamiflu PO Not Given BID [facility] Potassium Chloride 40 meq 07/23/18 21:00 Klor-Con M20 PO BID [facility] Warfarin Sodium 5 mg 07/23/18 19:30 Coumadin PO SUMOTUTHFR [facility] Warfarin Sodium 7.5 mg 07/25/18 19:23 Coumadin PO WESA [facility] - Re-Assessments/Exams Free Text/Narrative Re-Assessment/Exam: 07/23/18 21:44. Departure - Departure Time of Disposition: 16:40 Disposition: Admitted As Inpatient 66 Condition: Serious Clinical Impression: Pleural effusion, Influenza Congestive heart failure Qualifiers: Heart failure type: combined systolic and diastolic Heart failure chronicity: acute on chronic Qualified Code(s): I50.43 - Acute on chronic combined systolic (congestive) and diastolic (congestive) heart failure - Discharge Information ED Communication - Discussed Case With (1) Discussed Case With (1): Admitting Provider (Discussed with Dr Brown, decision to admit at about 16:30.) - My Orders Last 24 Hours: My Active Orders 07/23/18 15:44 Oxygen Therapy [RC] ASDIRECTED Peripheral IV Insertion Adult [OM.PC] Stat 07/23/18 15:47 Peripheral IV Care [RC] Q2HR Sodium Chloride 0.9% [Saline Flush] 10 ml FLUSH ASDIRECTED PRN - Assessment/Plan Last 24 Hours: My Active Orders 07/23/18 15:44 Oxygen Therapy [RC] ASDIRECTED Peripheral IV Insertion Adult [OM.PC] Stat 07/23/18 15:47 Peripheral IV Care [RC] Q2HR Sodium Chloride 0.9% [Saline Flush] 10 ml FLUSH ASDIRECTED PRN
--- NOTE | 2018-07-23 17:11 | CR ---
Chest: Portable view of the chest is obtained. Comparison: Previous chest x-ray of 07/02/18. Dense consolidation or possibly superimposed pleural effusion opacifying the left mid and lower lung. Left upper lung is clear. Right lung is clear. Heart is enlarged. AICD is noted. Mild scoliosis and slight degenerative change noted within the spine. Impression: 1. Dense consolidation or possibly superimposed pleural effusion opacifying the left mid and lower lung. Chest CT would differentiate if clinically needed. 2. Other incidental findings. Diagnostic code #3
[2018-07-23] MEDS ORDERED: LORazepam 2 MG/ML SDV IVPUSH ONE ×2 (18:10→21:14)
[2018-07-23] MEDS ORDERED: Furosemide 40 MG/4 ML VIAL IVPUSH ONE (18:16)
[2018-07-23] MEDS ORDERED: Oseltamivir 75 MG Cap PO ONE (18:16)
[2018-07-23] MEDS: Furosemide 100 MG in Sodium Chloride 0.9% 90 ML IV SCH (18:58)
--- NOTE | 2018-07-23 19:14 | PCM.HP ---
H&P History of Present Illness - General Date of Service: 07/23/18 Admit Problem/Dx: Admission Diagnosis/Problem Admission Diagnosis/Problem Pleural effusion Source of Information: Family, Senior Living Records (assisted living) - History of Present Illness Initial Comments - Free Text/Narative: 68 year old male with PMH of seizure disorder, dementia of unclear etiology has been living in assisted living facility. He has had symptoms that suggest CHF exacerbation, and has been taking Ativan to relieve his SOB. He has a history of stool and urine incontinence. He had been seeing cardiologists in [place] who left 2-3 months prior to admission. And will be seeing Dr Flores this month. he has a PMH of AFib, and is on Coumadin with a supratherapeutic INR. he was hypoxic, and has hypercapnia. And has been subsequently started on BiPAP. his sister is his POA, the patient is DNR/DNI. She wishes to pursue SNF at [place]. he will be admitted to the ICU. Resp work documented Influenza B positive, he is in droplet isolation. Onset of Symptoms: Reports: Unknown/Unsure Symptom Onset Date: 07/19/18 Duration of Symptoms: Reports: Week(s):, Getting Worse Location: Reports: Generalized Quality: Reports: Same as Previous Episode Severity: Moderate Improves with: Reports: Medication Worsens with: Reports: None Context: Reports: Sick Contact (Influenza) Associated Symptoms: Reports: Confusion, Cough, Loss of Appetite, Malaise, Nausea/Vomiting, Shortness of Breath, Weakness - Related Data Allergies/Adverse Reactions: Allergies Allergy/AdvReac Type Severity Reaction Status Date / Time No Known Allergies Allergy Verified 07/23/18 15:10 Home Medications: Home Meds Acetaminophen [Tylenol Extra Strength] 1,000 mg PO BID 06/11/17 [History] Allopurinol [Zyloprim] 300 mg PO DAILY 06/11/17 [History] Ascorbic Acid [Vitamin C] 500 tab PO BID 06/11/17 [History] Calcitriol 0.5 mg PO QPM 06/11/17 [History] Carvedilol [Coreg] 25 mg PO BID 06/11/17 [History] Celecoxib [CeleBREX] 20 mg PO DAILY 06/11/17 [History] Dicyclomine [Bentyl] 20 mg PO QID 06/11/17 [History] Donepezil [Aricept] 5 mg PO DAILY 06/11/17 [History] Escitalopram [Lexapro] 10 mg PO DAILY 06/11/17 [History] Fenofibrate Nanocrystallized [Tricor] 145 mg PO DAILY 06/11/17 [History] Furosemide [Lasix] 40 mg PO BID 06/11/17 [History] Levothyroxine [Synthroid] 88 mcg PO MOTUWETHFR 06/11/17 [History] Omeprazole 40 mg PO DAILY 06/11/17 [History] Phenytoin Sodium Extended [Dilantin] 400 mg PO QPM 06/11/17 [History] Potassium Chloride [Klor-Con M20] 40 meq PO BID 06/11/17 [History] Warfarin [Coumadin] 5 mg PO SUMOTUTHFR 06/11/17 [History] Warfarin [Coumadin] 7.5 mg PO WESA 06/11/17 [History] atorvaSTATin [Lipitor] 20 mg PO DAILY 06/11/17 [History] Albuterol Sulfate 1 dose INH Q4H PRN 07/05/17 [History] Calcium Carbonate [Calcium] 600 mg PO DAILY 07/05/17 [History] Cholecalciferol (Vitamin D3) [Vitamin D3] 1 tab PO DAILY 07/05/17 [History] Ferrous Sulfate [Feosol] 1 tab PO DAILY 07/05/17 [History] Sertraline [Zoloft] 50 mg PO DAILY 07/05/17 [History] LORazepam [Ativan] 0.5 mg PO DAILY 07/23/18 [History] Past Medical History HEENT History: Reports: Cataract, Impaired Vision Cardiovascular History: Reports: Afib, Heart Failure, High Cholesterol, Hypertension Respiratory History: Reports: SOB Gastrointestinal History: Reports: GERD Other Gastrointestinal History: incontinent of bowel. Genitourinary History: Reports: Urinary Incontinence Musculoskeletal History: Reports: Arthritis, Gout Neurological History: Reports: Seizure Psychiatric History: Reports: Anxiety, Dementia, Depression Endocrine/Metabolic History: Reports: Hypothyroidism Hematologic History: Reports: Anemia Dermatologic History: Reports: Eczema - Infectious Disease History Infectious Disease History: Reports: Chicken Pox, Measles, Mumps - Past Surgical History HEENT Surgical History: Reports: Cataract Surgery Other Cardiovascular Surgeries/Procedures: pace maker and defibrillator GI Surgical History: Reports: Colonoscopy, Hernia Repair/Other Social & Family History - Tobacco Use Smoking Status *Q: Never Smoker - Caffeine Use Caffeine Use: Reports: Coffee, Soda - Recreational Drug Use Recreational Drug Use: No H&P Review of Systems - Review of Systems: Review Of Systems: See Below General: Reports: Malaise, Weakness, Fatigue, Weight Gain HEENT: Reports: No Symptoms Pulmonary: Reports: Shortness of Breath, Wheezing, Cough Cardiovascular: Reports: Palpitations, Edema (+4), Lightheadedness Gastrointestinal: Reports: No Symptoms Genitourinary: Reports: No Symptoms, Frequency Musculoskeletal: Reports: No Symptoms Skin: Reports: Rash Psychiatric: Reports: Confusion, Depression Neurological: Reports: Confusion Hematologic/Lymphatic: Reports: No Symptoms Immunologic: Reports: No Symptoms Exam - Exam Exam: See Below - Vital Signs Vital Signs: Last Vital Signs Temp 35.7 C 07/23/18 15:08 Pulse 85 07/23/18 15:08 Resp 38 H 07/23/18 15:08 BP 142/67 H 07/23/18 15:08 Pulse Ox 98 07/23/18 16:00 Weight: 113.398 kg - Exam Quality Assessment: Supplemental Oxygen, DVT Prophylaxis General: Alert, Oriented, Cooperative, Mild Distress HEENT: Conjunctiva Clear, Hearing Intact, Nares Patent, Pupils Equal, Pupils Reactive, PERRLA Neck: Trachea Midline Lungs: Normal Respiratory Effort, Decreased Breath Sounds, Rhonchi, Wheezing Cardiovascular: Regular Rate, Systolic Murmur GI/Abdominal Exam: Normal Bowel Sounds, Soft, Non-Tender, No Organomegaly, No Distention (Male) Exam: Deferred Rectal (Males) Exam: Deferred Back Exam: Normal Inspection Extremities: Normal Inspection, Non-Tender, Pedal Edema, Slow Capillary Refill Neurological: Cranial Nerves Intact Neuro Extensive - Mental Status: Alert Neuro Extensive - Motor, Sensory, Reflexes: CN II-XII Intact Psychiatric: Alert - Patient Data Lab Results Last 24 hrs: Laboratory Results - last 24 hr 07/23/18 07/23/18 07/23/18 Range/Units 16:23 16:23 16:23 WBC 10.67 H (4.23-9.07) K/mm3 RBC 3.62 L (4.63-6.08) M/mm3 Hgb 10.6 L (13.7-17.5) gm/L Hct 34.0 L (40.1-51.0) % MCV 93.9 H (79.0-92.2) fl MCH 29.3 (25.7-32.2) pg MCHC 31.2 L (32.2-35.5) g/dl RDW Std Deviation 45.9 H (35.1-43.9) fL Plt Count 339 H (163-337) K/mm3 MPV 8.6 L (9.4-12.3) fl Neutrophils % (Manual) 85 H (40-60) % Band Neutrophils % 0 (0-10) % Lymphocytes % (Manual) 6 L (20-40) % Atypical Lymphs % 0 % Monocytes % (Manual) 8 (2-10) % Eosinophils % (Manual) 1 (0.8-7.0) % Basophils % (Manual) 0 L (0.2-1.2) Platelet Estimate Adequate Hypochromasia 2+ moderate Anisocytosis 2+ moderate RBC Morph Comment Abnormal PT (9.5-12.1) SECONDS INR Puncture Site ABG pH (7.35-7.45) ABG pCO2 (35.0-45.0) mmHg ABG pO2 (80.0-100.0) mmHg ABG HCO3 (22.0-26.0) meq/L ABG O2 Saturation (96.0-97.0) % ABG Base Excess (-2-2.0) Gilbert Test A-a Gradient mmHg O2 Delivery Device Oxygen Flow Rate FiO2 (21.00-100.00) % Sodium 139 (136-145) mEq/L Potassium 5.2 H (3.5-5.1) mEq/L Chloride 101 (98-107) mEq/L Carbon Dioxide 29 (21-32) mEq/L Anion Gap 14.2 (5-15) BUN 33 H (7-18) mg/dL Creatinine 1.0 (0.7-1.3) mg/dL Est Cr Clr Drug Dosing 79.90 mL/min Estimated GFR (MDRD) > 60 (>60) mL/min BUN/Creatinine Ratio 33.0 H (14-18) Glucose 109 (80-115) mg/dL Calcium 8.8 (8.5-10.1) mg/dL Total Bilirubin 0.4 (0.2-1.0) mg/dL AST 19 (15-37) U/L ALT 32 (16-63) U/L Alkaline Phosphatase 82 (46-116) U/L NT-Pro-B Natriuret Pep 943 H (0-125) pg/mL Total Protein 7.3 (6.4-8.2) g/dl Albumin 2.5 L (3.4-5.0) g/dl Globulin 4.8 gm/dL Albumin/Globulin Ratio 0.5 L (1-2) Mycoplasma pneumon IgM Negative (NEGATIVE) 07/23/18 07/23/18 Range/Units 16:23 18:29 WBC (4.23-9.07) K/mm3 RBC (4.63-6.08) M/mm3 Hgb (13.7-17.5) gm/L Hct (40.1-51.0) % MCV (79.0-92.2) fl MCH (25.7-32.2) pg MCHC (32.2-35.5) g/dl RDW Std Deviation (35.1-43.9) fL Plt Count (163-337) K/mm3 MPV (9.4-12.3) fl Neutrophils % (Manual) (40-60) % Band Neutrophils % (0-10) % Lymphocytes % (Manual) (20-40) % Atypical Lymphs % % Monocytes % (Manual) (2-10) % Eosinophils % (Manual) (0.8-7.0) % Basophils % (Manual) (0.2-1.2) Platelet Estimate Hypochromasia Anisocytosis RBC Morph Comment PT 63.8 H* (9.5-12.1) SECONDS INR 6.06 H* Puncture Site Lt radial ABG pH 7.33 L (7.35-7.45) ABG pCO2 55.1 H (35.0-45.0) mmHg ABG pO2 74.0 L (80.0-100.0) mmHg ABG HCO3 27.9 H (22.0-26.0) meq/L ABG O2 Saturation 92.4 L (96.0-97.0) % ABG Base Excess 1.6 (-2-2.0) Gilbert Test Positive A-a Gradient 36 mmHg O2 Delivery Device Nasal cannula Oxygen Flow Rate 2.0 FiO2 28.00 (21.00-100.00) % Sodium (136-145) mEq/L Potassium (3.5-5.1) mEq/L Chloride (98-107) mEq/L Carbon Dioxide (21-32) mEq/L Anion Gap (5-15) BUN (7-18) mg/dL Creatinine (0.7-1.3) mg/dL Est Cr Clr Drug Dosing mL/min Estimated GFR (MDRD) (>60) mL/min BUN/Creatinine Ratio (14-18) Glucose (80-115) mg/dL Calcium (8.5-10.1) mg/dL Total Bilirubin (0.2-1.0) mg/dL AST (15-37) U/L ALT (16-63) U/L Alkaline Phosphatase (46-116) U/L NT-Pro-B Natriuret Pep (0-125) pg/mL Total Protein (6.4-8.2) g/dl Albumin (3.4-5.0) g/dl Globulin gm/dL Albumin/Globulin Ratio (1-2) Mycoplasma pneumon IgM (NEGATIVE) Result Diagrams: 07/23/18 16:23 07/23/18 16:23 Michael Results Last 24 hrs: Microbiology 07/23/18 16:00 Influenza Type A Antigen Screen - Final Nasopharyngeal Swab NEGATIVE INFLUENZA A VIRUS AG Influenza Type B Antigen Screen - Final Positive Influenza B Ag - Problem List (1) CHF (NYHA class III, ACC/AHA stage C) SNOMED Code(s): 893381778, 776065817, 282908724 ICD Code: I50.9 - HEART FAILURE, UNSPECIFIED Status: Acute Current Visit : Yes (2) Anxiety, generalized SNOMED Code(s): 44808147 ICD Code: F41.1 - GENERALIZED ANXIETY DISORDER Status: Acute Current Visit: No (3) Fluid overload, unspecified SNOMED Code(s): 25757546 ICD Code: E87.70 - FLUID OVERLOAD, UNSPECIFIED Status: Acute Current Visit: No Qualifiers: Hypervolemia type: other Qualified Code(s): E87.79 - Other fluid overload (4) Shortness of breath SNOMED Code(s): 835300462 ICD Code: R06.02 - SHORTNESS OF BREATH Status: Acute Current Visit: No (5) Influenza B SNOMED Code(s): 87911286 ICD Code: J10.1 - FLU DUE TO OTH IDENT INFLUENZA VIRUS W OTH RESP MANIFEST Status: Acute Current Visit: Yes Problem List Initiated/Reviewed/Updated: Yes Orders Last 24hrs: Active Orders 24 hr Category Date Time Status Admission Status [Patient Status] [ADT] Routine ADT 07/23/18 18:43 Active BIPAP [RT BiPAP/CPAP] [RC] ASDIRECTED Care 07/23/18 18:33 Active EKG 12 Lead [EKG Documentation Completion] [RC] STAT Care 07/23/18 15:44 Active Oxygen Therapy [RC] ASDIRECTED Care 07/23/18 15:44 Active Peripheral IV Care [RC] . DIRECTED Care 07/23/18 15:47 Active RT Aerosol Therapy [RC] ASDIRECTED Care 07/23/18 15:47 Active Furosemide [Lasix] 100 mg Med 07/23/18 18:45 Active Sodium Chloride 0.9% [Normal Saline] 90 ml IV TITRATE Sodium Chloride 0.9% [Saline Flush] Med 07/23/18 15:47 Active 10 ml FLUSH ASDIRECTED PRN Peripheral IV Insertion Adult [OM.PC] Stat Oth 07/23/18 15:44 Ordered Medication Orders Furosemide 100 mg/ Sodium (Chloride) 100 mls @ 4 mls/hr IV TITRATE ASHLEIGH; Protocol Last Admin: 07/23/18 18:58 Dose: 4 mg/hr, 4 mls/hr Sodium Chloride (Saline Flush) 10 ml FLUSH ASDIRECTED PRN PRN Reason: Keep Vein Open Last Admin: 07/23/18 16:23 Dose: 10 ml Assessment/Plan Comment:: Impression: Influenza B positive CHF, functional class III, stage C Acute decompensated heart failure Query RHF>LHF Supratherapeutic INR History of A fib Urine/stool incontinence History of dementia/depression Chronic GERD HTN HLD Seizure disorder Plan: Lasix gtt TamiFlu Infectious work up Home meds Daily labs Consult dietary/SW/PT/OT DVT/GI prophylaxis
[2018-07-23] MEDS ORDERED: Warfarin 5 MG Tab PO SCH (19:30)
[2018-07-23] MEDS ORDERED: Albuterol/Ipratropium 3.0-0.5 MG/3 ML Neb Soln NEB PRN (19:42)
[2018-07-23] MEDS: LORazepam 0.5 MG Tab PO SCH (20:54)
[2018-07-23] MEDS: Carvedilol 12.5 MG Tab PO SCH (20:57)
[2018-07-23] MEDS ORDERED: Potassium Chloride 20 MEQ Tab.ER PO SCH (21:00)
[2018-07-23] MEDS ORDERED: Morphine 2 MG/ML Syringe IVPUSH ONE (21:13)
[2018-07-23] MEDS ORDERED: LORazepam 2 MG/ML SDV IVPUSH PRN (21:38)
[2018-07-24] MEDS: Morphine 2 MG/ML Syringe IVPUSH PRN ×4 (01:08→20:08)
[2018-07-24] MEDS: Levothyroxine 88 MCG Tab PO SCH (06:20)
[2018-07-24] MEDS ORDERED: LORazepam 2 MG/ML SDV IVPUSH ONE (07:42)
[2018-07-24] MEDS ORDERED: Albuterol 0.083% 2.5 MG/3 ML Neb Soln NEB PRN (08:50)
[2018-07-24] MEDS ORDERED: Albuterol/Ipratropium 3.0-0.5 MG/3 ML Neb Soln NEB SCH (09:00)
[2018-07-24] MEDS: Albuterol/Ipratropium 3.0-0.5 MG/3 ML Neb Soln NEB SCH ×3 (09:06→20:22)
--- NOTE | 2018-07-24 09:17 | CR ---
Chest: Portable view of the chest was obtained. Comparison: Previous chest x-ray of 07/23/18. Continuing opacification of the left mid and lower lung is seen. Differential as previously described. Heart is enlarged. AICD is noted. Right lung remains clear. Impression: 1. Opacified left mid and lower lung which remain stable from recent chest x-ray. Stable cardiomegaly. Right lung remains clear. Diagnostic code #3
[2018-07-24] MEDS ORDERED: Albuterol 0.083% 2.5 MG/3 ML Neb Soln NEB SCH (10:00)
[2018-07-24] MEDS: Donepezil 10 MG Tab PO SCH (10:27)
[2018-07-24] MEDS: LORazepam 0.5 MG Tab PO SCH (10:27)
[2018-07-24] MEDS: Citalopram 20 MG Tab PO SCH (10:27)
[2018-07-24] MEDS: Carvedilol 12.5 MG Tab PO SCH ×2 (10:28→21:21)
[2018-07-24] MEDS: Sertraline 50 MG Tab PO SCH (10:28)
[2018-07-24] MEDS: Fenofibrate Nanocrystallized 145 MG Tab PO SCH (10:28)
[2018-07-24] MEDS: Oseltamivir 75 MG Cap PO SCH ×2 (10:28→21:21)
[2018-07-24] MEDS: Allopurinol 300 MG Tab PO SCH (10:28)
[2018-07-24] MEDS: Ferrous Sulfate 325 MG Tab PO SCH (10:28)
[2018-07-24] MEDS ORDERED: Azithromycin 500 MG in Sodium Chloride 0.9% 250 ML IV SCH ×2 (10:30→14:00)
[2018-07-24] MEDS ORDERED: cefTRIAXone 2 GM in Sodium Chloride 0.9% 100 ML IV SCH ×2 (11:00→13:30)
--- NOTE | 2018-07-24 13:01 | PCM.PN ---
- General Info Date of Service: 07/24/18 Admission Dx/Problem (Free Text): Admission Diagnosis/Problem Admission Diagnosis/Problem Pleural effusion Subjective Update: Follow Up Functional Status: Reports: Pain Controlled, Ambulating, Urinating, New Symptoms (Hypoxia). Denies: Tolerating Diet - Review of Systems General: Denies: Fever, Chills HEENT: Reports: No Symptoms Pulmonary: Reports: Shortness of Breath. Denies: Other Cardiovascular: Reports: Edema. Denies: Chest Pain, Dyspnea on Exertion, Lightheadedness Gastrointestinal: Denies: Abdominal Pain, Nausea, Vomiting Genitourinary: Reports: No Symptoms Musculoskeletal: Reports: No Symptoms Skin: Denies: Cyanosis, Mottled, Pallor, Diaphoresis Neurological: Denies: Weakness, Gait Disturbance Psychiatric: Denies: Depression, Anxiety, Agitation, Hallucinations Systems Review Comment:: Patient was on BIPAP overnight and was primarily medicated with PRN IVP Morphine and Ativan. He was afebrile with mild leukocytosis. He was agitated and combative during morning rounds. I personally witnessed his agitation and aggressiveness; his sister and [id number] had to help restrain him in bed. His INR is 6.06 but no reports of active bleeding. His CRP is 25.6. He still on BIPAP at 14/7. His most recent ABG shows a pH of 7.27, pCO2 of 71, pO2 of 81, HCO3 of 31.5, and O2 Sat of 93.2%. His viral panel is negative. - Patient Data Vitals - Most Recent: Last Vital Signs Temp 36.3 C 07/24/18 12:00 Pulse 71 07/24/18 12:00 Resp 22 H 07/24/18 12:00 BP 136/54 L 07/24/18 12:00 Pulse Ox 98 07/24/18 12:00 Weight - Most Recent: 122.334 kg I&O - Last 24 Hours: Intake & Output 07/23/18 07/24/18 07/24/18 22:59 06:59 14:59 Intake Total 129 Output Total 600 850 280 Balance -303 -014 -750 Lab Results Last 24 Hours: Laboratory Results - last 24 hr 07/23/18 07/23/18 07/23/18 Range/Units 16:23 16:23 16:23 WBC 10.67 H (4.23-9.07) K/mm3 RBC 3.62 L (4.63-6.08) M/mm3 Hgb 10.6 L (13.7-17.5) gm/L Hct 34.0 L (40.1-51.0) % MCV 93.9 H (79.0-92.2) fl MCH 29.3 (25.7-32.2) pg MCHC 31.2 L (32.2-35.5) g/dl RDW Std Deviation 45.9 H (35.1-43.9) fL Plt Count 339 H (163-337) K/mm3 MPV 8.6 L (9.4-12.3) fl Neut % (Auto) (34.0-67.9) % Lymph % (Auto) (21.8-53.1) % [place] % (Auto) (5.3-12.2) % Eos % (Auto) (0.8-7.0) Baso % (Auto) (0.1-1.2) % Neut # (Auto) (1.78-5.38) K/mm3 Lymph # (Auto) (1.32-3.57) K/mm3 [place] # (Auto) (0.30-0.82) K/mm3 Eos # (Auto) (0.04-0.54) K/mm3 Baso # (Auto) (0.01-0.08) K/mm3 Neutrophils % (Manual) 85 H (40-60) % Band Neutrophils % 0 (0-10) % Lymphocytes % (Manual) 6 L (20-40) % Atypical Lymphs % 0 % Monocytes % (Manual) 8 (2-10) % Eosinophils % (Manual) 1 (0.8-7.0) % Basophils % (Manual) 0 L (0.2-1.2) Manual Slide Review Platelet Estimate Adequate Hypochromasia 2+ moderate Anisocytosis 2+ moderate RBC Morph Comment Abnormal PT (9.5-12.1) SECONDS INR Puncture Site ABG pH (7.35-7.45) ABG pCO2 (35.0-45.0) mmHg ABG pO2 (80.0-100.0) mmHg ABG HCO3 (22.0-26.0) meq/L ABG O2 Saturation (96.0-97.0) % ABG Base Excess (-2-2.0) Gilbert Test A-a Gradient mmHg O2 Delivery Device Oxygen Flow Rate FiO2 (21.00-100.00) % Pressure Support cmH2O Sodium 139 (136-145) mEq/L Potassium 5.2 H (3.5-5.1) mEq/L Chloride 101 (98-107) mEq/L Carbon Dioxide 29 (21-32) mEq/L Anion Gap 14.2 (5-15) BUN 33 H (7-18) mg/dL Creatinine 1.0 (0.7-1.3) mg/dL Est Cr Clr Drug Dosing 79.90 mL/min Estimated GFR (MDRD) > 60 (>60) mL/min BUN/Creatinine Ratio 33.0 H (14-18) Glucose 109 (80-115) mg/dL Lactic Acid (0.4-2.0) mmol/L Calcium 8.8 (8.5-10.1) mg/dL Total Bilirubin 0.4 (0.2-1.0) mg/dL AST 19 (15-37) U/L ALT 32 (16-63) U/L Alkaline Phosphatase 82 (46-116) U/L Troponin I (0.00-0.056) ng/mL C-Reactive Protein (<1.0) mg/dL NT-Pro-B Natriuret Pep 943 H (0-125) pg/mL Total Protein 7.3 (6.4-8.2) g/dl Albumin 2.5 L (3.4-5.0) g/dl Globulin 4.8 gm/dL Albumin/Globulin Ratio 0.5 L (1-2) Triglycerides (<150) mg/dL Cholesterol (<200) mg/dL LDL Cholesterol Direct (<100) mg/dL HDL Cholesterol (40-59) mg/dL TSH 3rd Generation (0.358-3.74) uIU/mL Urine Color (Yellow) Urine Appearance (Clear) Urine pH (5.0-8.0) Ur Specific [place] (1.005-1.030) Urine Protein (Negative) Urine Glucose (UA) (Negative) Urine Ketones (Negative) Urine Occult Blood (Negative) Urine Nitrite (Negative) Urine Bilirubin (Negative) Urine Urobilinogen (0.2-1.0) Ur Leukocyte Esterase (Negative) Urine RBC (0-5) /hpf Urine WBC (0-5) /hpf Ur Epithelial Cells (0-5) /hpf Urine Bacteria (FEW) /hpf Urine Mucus (FEW) /hpf Mycoplasma pneumon IgM Negative (NEGATIVE) 07/23/18 07/23/18 07/23/18 Range/Units 16:23 18:29 20:30 WBC (4.23-9.07) K/mm3 RBC (4.63-6.08) M/mm3 Hgb (13.7-17.5) gm/L Hct (40.1-51.0) % MCV (79.0-92.2) fl MCH (25.7-32.2) pg MCHC (32.2-35.5) g/dl RDW Std Deviation (35.1-43.9) fL Plt Count (163-337) K/mm3 MPV (9.4-12.3) fl Neut % (Auto) (34.0-67.9) % Lymph % (Auto) (21.8-53.1) % [place] % (Auto) (5.3-12.2) % Eos % (Auto) (0.8-7.0) Baso % (Auto) (0.1-1.2) % Neut # (Auto) (1.78-5.38) K/mm3 Lymph # (Auto) (1.32-3.57) K/mm3 [place] # (Auto) (0.30-0.82) K/mm3 Eos # (Auto) (0.04-0.54) K/mm3 Baso # (Auto) (0.01-0.08) K/mm3 Neutrophils % (Manual) (40-60) % Band Neutrophils % (0-10) % Lymphocytes % (Manual) (20-40) % Atypical Lymphs % % Monocytes % (Manual) (2-10) % Eosinophils % (Manual) (0.8-7.0) % Basophils % (Manual) (0.2-1.2) Manual Slide Review Platelet Estimate Hypochromasia Anisocytosis RBC Morph Comment PT 63.8 H* (9.5-12.1) SECONDS INR 6.06 H* Puncture Site Lt radial ABG pH 7.33 L (7.35-7.45) ABG pCO2 55.1 H (35.0-45.0) mmHg ABG pO2 74.0 L (80.0-100.0) mmHg ABG HCO3 27.9 H (22.0-26.0) meq/L ABG O2 Saturation 92.4 L (96.0-97.0) % ABG Base Excess 1.6 (-2-2.0) Gilbert Test Positive A-a Gradient 36 mmHg O2 Delivery Device Nasal cannula Oxygen Flow Rate 2.0 FiO2 28.00 (21.00-100.00) % Pressure Support cmH2O Sodium (136-145) mEq/L Potassium (3.5-5.1) mEq/L Chloride (98-107) mEq/L Carbon Dioxide (21-32) mEq/L Anion Gap (5-15) BUN (7-18) mg/dL Creatinine (0.7-1.3) mg/dL Est Cr Clr Drug Dosing mL/min Estimated GFR (MDRD) (>60) mL/min BUN/Creatinine Ratio (14-18) Glucose (80-115) mg/dL Lactic Acid (0.4-2.0) mmol/L Calcium (8.5-10.1) mg/dL Total Bilirubin (0.2-1.0) mg/dL AST (15-37) U/L ALT (16-63) U/L Alkaline Phosphatase (46-116) U/L Troponin I < 0.017 (0.00-0.056) ng/mL C-Reactive Protein (<1.0) mg/dL NT-Pro-B Natriuret Pep (0-125) pg/mL Total Protein (6.4-8.2) g/dl Albumin (3.4-5.0) g/dl Globulin gm/dL Albumin/Globulin Ratio (1-2) Triglycerides (<150) mg/dL Cholesterol (<200) mg/dL LDL Cholesterol Direct (<100) mg/dL HDL Cholesterol (40-59) mg/dL TSH 3rd Generation (0.358-3.74) uIU/mL Urine Color (Yellow) Urine Appearance (Clear) Urine pH (5.0-8.0) Ur Specific [place] (1.005-1.030) Urine Protein (Negative) Urine Glucose (UA) (Negative) Urine Ketones (Negative) Urine Occult Blood (Negative) Urine Nitrite (Negative) Urine Bilirubin (Negative) Urine Urobilinogen (0.2-1.0) Ur Leukocyte Esterase (Negative) Urine RBC (0-5) /hpf Urine WBC (0-5) /hpf Ur Epithelial Cells (0-5) /hpf Urine Bacteria (FEW) /hpf Urine Mucus (FEW) /hpf Mycoplasma pneumon IgM (NEGATIVE) 07/23/18 07/24/18 07/24/18 Range/Units 21:30 07:35 07:35 WBC 10.90 H (4.23-9.07) K/mm3 RBC 3.88 L (4.63-6.08) M/mm3 Hgb 11.4 L (13.7-17.5) gm/L Hct 37.1 L (40.1-51.0) % MCV 95.6 H (79.0-92.2) fl MCH 29.4 (25.7-32.2) pg MCHC 30.7 L (32.2-35.5) g/dl RDW Std Deviation 47.7 H (35.1-43.9) fL Plt Count 336 (163-337) K/mm3 MPV 9.0 L (9.4-12.3) fl Neut % (Auto) 79.4 H (34.0-67.9) % Lymph % (Auto) 9.5 L (21.8-53.1) % [place] % (Auto) 9.6 (5.3-12.2) % Eos % (Auto) 0.7 L (0.8-7.0) Baso % (Auto) 0.2 (0.1-1.2) % Neut # (Auto) 8.64 H (1.78-5.38) K/mm3 Lymph # (Auto) 1.04 L (1.32-3.57) K/mm3 [place] # (Auto) 1.05 H (0.30-0.82) K/mm3 Eos # (Auto) 0.08 (0.04-0.54) K/mm3 Baso # (Auto) 0.02 (0.01-0.08) K/mm3 Neutrophils % (Manual) (40-60) % Band Neutrophils % (0-10) % Lymphocytes % (Manual) (20-40) % Atypical Lymphs % % Monocytes % (Manual) (2-10) % Eosinophils % (Manual) (0.8-7.0) % Basophils % (Manual) (0.2-1.2) Manual Slide Review Normal smear Platelet Estimate Hypochromasia Anisocytosis RBC Morph Comment PT (9.5-12.1) SECONDS INR Puncture Site ABG pH (7.35-7.45) ABG pCO2 (35.0-45.0) mmHg ABG pO2 (80.0-100.0) mmHg ABG HCO3 (22.0-26.0) meq/L ABG O2 Saturation (96.0-97.0) % ABG Base Excess (-2-2.0) Gilbetr Test A-a Gradient mmHg O2 Delivery Device Oxygen Flow Rate FiO2 (21.00-100.00) % Pressure Support cmH2O Sodium 143 (136-145) mEq/L Potassium 4.5 (3.5-5.1) mEq/L Chloride 102 (98-107) mEq/L Carbon Dioxide 33 H (21-32) mEq/L Anion Gap 12.5 (5-15) BUN 26 H (7-18) mg/dL Creatinine 1.0 (0.7-1.3) mg/dL Est Cr Clr Drug Dosing 79.90 mL/min Estimated GFR (MDRD) > 60 (>60) mL/min BUN/Creatinine Ratio 26.0 H (14-18) Glucose 103 (80-115) mg/dL Lactic Acid (0.4-2.0) mmol/L Calcium 8.9 (8.5-10.1) mg/dL Total Bilirubin (0.2-1.0) mg/dL AST (15-37) U/L ALT (16-63) U/L Alkaline Phosphatase (46-116) U/L Troponin I < 0.017 (0.00-0.056) ng/mL C-Reactive Protein 25.6 H* (<1.0) mg/dL NT-Pro-B Natriuret Pep (0-125) pg/mL Total Protein (6.4-8.2) g/dl Albumin (3.4-5.0) g/dl Globulin gm/dL Albumin/Globulin Ratio (1-2) Triglycerides 84 (<150) mg/dL Cholesterol 84 (<200) mg/dL LDL Cholesterol Direct 42 (<100) mg/dL HDL Cholesterol 29.0 L (40-59) mg/dL TSH 3rd Generation 1.162 (0.358-3.74) uIU/mL Urine Color Yellow (Yellow) Urine Appearance Clear (Clear) Urine pH 6.0 (5.0-8.0) Ur Specific [place] 1.020 (1.005-1.030) Urine Protein Negative (Negative) Urine Glucose (UA) Negative (Negative) Urine Ketones Negative (Negative) Urine Occult Blood 3+ H (Negative) Urine Nitrite Negative (Negative) Urine Bilirubin Negative (Negative) Urine Urobilinogen 0.2 (0.2-1.0) Ur Leukocyte Esterase Negative (Negative) Urine RBC 5-10 H (0-5) /hpf Urine WBC 0-5 (0-5) /hpf Ur Epithelial Cells 0-5 (0-5) /hpf Urine Bacteria Few (FEW) /hpf Urine Mucus Few (FEW) /hpf Mycoplasma pneumon IgM (NEGATIVE) 07/24/18 07/24/18 07/24/18 Range/Units 07:35 07:53 09:00 WBC (4.23-9.07) K/mm3 RBC (4.63-6.08) M/mm3 Hgb (13.7-17.5) gm/L Hct (40.1-51.0) % MCV (79.0-92.2) fl MCH (25.7-32.2) pg MCHC (32.2-35.5) g/dl RDW Std Deviation (35.1-43.9) fL Plt Count (163-337) K/mm3 MPV (9.4-12.3) fl Neut % (Auto) (34.0-67.9) % Lymph % (Auto) (21.8-53.1) % [place] % (Auto) (5.3-12.2) % Eos % (Auto) (0.8-7.0) Baso % (Auto) (0.1-1.2) % Neut # (Auto) (1.78-5.38) K/mm3 Lymph # (Auto) (1.32-3.57) K/mm3 [place] # (Auto) (0.30-0.82) K/mm3 Eos # (Auto) (0.04-0.54) K/mm3 Baso # (Auto) (0.01-0.08) K/mm3 Neutrophils % (Manual) (40-60) % Band Neutrophils % (0-10) % Lymphocytes % (Manual) (20-40) % Atypical Lymphs % % Monocytes % (Manual) (2-10) % Eosinophils % (Manual) (0.8-7.0) % Basophils % (Manual) (0.2-1.2) Manual Slide Review Platelet Estimate Hypochromasia Anisocytosis RBC Morph Comment PT (9.5-12.1) SECONDS INR Puncture Site Lt radial Lt radial ABG pH 7.25 L 7.27 L (7.35-7.45) ABG pCO2 76.9 H* 71.0 H* (35.0-45.0) mmHg ABG pO2 72.0 L 81.0 (80.0-100.0) mmHg ABG HCO3 32.3 H 31.5 H (22.0-26.0) meq/L ABG O2 Saturation 88.3 L 93.2 L (96.0-97.0) % ABG Base Excess 3.6 H 3.5 H (-2-2.0) Gilbert Test A-a Gradient 152 112 mmHg O2 Delivery Device Bipap 12/6 Bipap 14/7 Oxygen Flow Rate 6.0 6.0 FiO2 50.00 44.00 (21.00-100.00) % Pressure Support 40.0 cmH2O Sodium (136-145) mEq/L Potassium (3.5-5.1) mEq/L Chloride (98-107) mEq/L Carbon Dioxide (21-32) mEq/L Anion Gap (5-15) BUN (7-18) mg/dL Creatinine (0.7-1.3) mg/dL Est Cr Clr Drug Dosing mL/min Estimated GFR (MDRD) (>60) mL/min BUN/Creatinine Ratio (14-18) Glucose (80-115) mg/dL Lactic Acid 1.2 (0.4-2.0) mmol/L Calcium (8.5-10.1) mg/dL Total Bilirubin (0.2-1.0) mg/dL AST (15-37) U/L ALT (16-63) U/L Alkaline Phosphatase (46-116) U/L Troponin I (0.00-0.056) ng/mL C-Reactive Protein (<1.0) mg/dL NT-Pro-B Natriuret Pep (0-125) pg/mL Total Protein (6.4-8.2) g/dl Albumin (3.4-5.0) g/dl Globulin gm/dL Albumin/Globulin Ratio (1-2) Triglycerides (<150) mg/dL Cholesterol (<200) mg/dL LDL Cholesterol Direct (<100) mg/dL HDL Cholesterol (40-59) mg/dL TSH 3rd Generation (0.358-3.74) uIU/mL Urine Color (Yellow) Urine Appearance (Clear) Urine pH (5.0-8.0) Ur Specific [place] (1.005-1.030) Urine Protein (Negative) Urine Glucose (UA) (Negative) Urine Ketones (Negative) Urine Occult Blood (Negative) Urine Nitrite (Negative) Urine Bilirubin (Negative) Urine Urobilinogen (0.2-1.0) Ur Leukocyte Esterase (Negative) Urine RBC (0-5) /hpf Urine WBC (0-5) /hpf Ur Epithelial Cells (0-5) /hpf Urine Bacteria (FEW) /hpf Urine Mucus (FEW) /hpf Mycoplasma pneumon IgM (NEGATIVE) Michael Results Last 24 Hours: Microbiology 07/23/18 21:30 Urine Culture - Preliminary Urine, Catheterized NO GROWTH AFTER 1 DAY 07/23/18 20:41 Anaerobic Blood Culture - Final Blood - Venous - Lab Draw 07/23/18 16:00 Influenza Type A Antigen Screen - Final Nasopharyngeal Swab NEGATIVE INFLUENZA A VIRUS AG Influenza Type B Antigen Screen - Final Positive Influenza B Ag Med Orders - Current: Current Medications Albuterol (Proventil Neb Soln) 2.5 mg NEB Q4HRRT PRN PRN Reason: Shortness of Breath Albuterol/Ipratropium (Duoneb 3.0-0.5 Mg/3 Ml) 3 ml NEB QIDRT [facility] Last Admin: 07/24/18 09:06 Dose: 3 ml Allopurinol (Zyloprim) 300 mg PO DAILY [facility] Last Admin: 07/24/18 10:28 Dose: Not Given Calcitriol (Rocaltrol) 0.5 mcg PO QPM [facility] Carvedilol (Coreg) 12.5 mg PO BID [facility] Last Admin: 07/24/18 10:28 Dose: Not Given Citalopram Hydrobromide (Celexa) 20 mg PO DAILY [facility] Last Admin: 07/24/18 10:27 Dose: Not Given Donepezil HCl (Aricept) 5 mg PO DAILY [facility] Last Admin: 07/24/18 10:27 Dose: Not Given Fenofibrate (Tricor) 145 mg PO DAILY [facility] Last Admin: 07/24/18 10:28 Dose: Not Given Ferrous Sulfate (Ferrous Sulfate) 325 mg PO DAILY [facility] Last Admin: 07/24/18 10:28 Dose: Not Given Furosemide 100 mg/ Sodium (Chloride) 100 mls @ 4 mls/hr IV TITRATE [facility]; Protocol Last Admin: 07/23/18 18:58 Dose: 4 mg/hr, 4 mls/hr Ceftriaxone Sodium 2 gm/ (Sodium Chloride) 100 mls @ 200 mls/hr IV Q24H [facility] Azithromycin 500 mg/ Sodium (Chloride) 250 mls @ 250 mls/hr IV Q24H [facility] Levothyroxine Sodium (Synthroid) 88 mcg PO [id number] [facility] Last Admin: 07/24/18 06:20 Dose: Not Given Lorazepam (Ativan) 0.5 mg PO DAILY [facility] Last Admin: 07/24/18 10:27 Dose: Not Given Lorazepam (Ativan) 2 mg IVPUSH Q4H PRN PRN Reason: Anxiety Morphine Sulfate (Morphine) 2 mg IVPUSH Q3H PRN PRN Reason: Dyspnea Last Admin: 07/24/18 08:49 Dose: 2 mg Oseltamivir Phosphate (Tamiflu) 75 mg PO BID [facility] Last Admin: 07/24/18 10:28 Dose: Not Given Phenytoin Sodium (Phenytoin) 400 mg PO QPM [facility] Sertraline HCl (Zoloft) 50 mg PO DAILY [facility] Last Admin: 07/24/18 10:28 Dose: Not Given Simvastatin (Zocor) 20 mg PO BEDTIME [facility] Sodium Chloride (Saline Flush) 10 ml FLUSH ASDIRECTED PRN PRN Reason: Keep Vein Open Last Admin: 07/23/18 16:23 Dose: 10 ml Discontinued Medications Albuterol (Proventil Neb Soln) 2.5 mg NEB Q4HRRT [facility] Albuterol/Ipratropium (Duoneb 3.0-0.5 Mg/3 Ml) 3 ml NEB ONETIME ONE Stop: 07/23/18 15:48 Last Admin: 07/23/18 16:00 Dose: 3 ml Albuterol/Ipratropium (Duoneb 3.0-0.5 Mg/3 Ml) 3 ml NEB QID PRN PRN Reason: Shortness of Breath Albuterol/Ipratropium (Duoneb 3.0-0.5 Mg/3 Ml) 3 ml NEB QID [facility] Furosemide (Lasix) 40 mg IVPUSH NOW ONE Stop: 07/23/18 18:17 Last Admin: 07/23/18 18:41 Dose: 40 mg Azithromycin 500 mg/ Sodium (Chloride) 250 mls @ 250 mls/hr IV Q24H [facility] Last Admin: 07/24/18 12:13 Dose: Not Given Ceftriaxone Sodium 2 gm/ (Sodium Chloride) 100 mls @ 200 mls/hr IV Q24H [facility] Last Admin: 07/24/18 12:14 Dose: Not Given Lorazepam (Ativan) 1 mg IVPUSH ONETIME ONE Stop: 07/23/18 18:11 Last Admin: 07/23/18 18:18 Dose: 1 mg Lorazepam (Ativan) 1 mg IVPUSH ONETIME ONE Stop: 07/23/18 21:15 Last Admin: 07/23/18 23:30 Dose: 1 mg Lorazepam (Ativan) 1 mg IVPUSH Q8H PRN PRN Reason: Anxiety Last Admin: 07/24/18 06:20 Dose: 1 mg Lorazepam (Ativan) 2 mg IVPUSH STAT ONE Stop: 07/24/18 07:43 Last Admin: 07/24/18 07:46 Dose: 2 mg Morphine Sulfate (Morphine) 2 mg IVPUSH ONETIME ONE Stop: 07/23/18 21:14 Last Admin: 07/23/18 21:24 Dose: 2 mg Morphine Sulfate (Morphine) 2 mg IVPUSH Q4H PRN PRN Reason: Shortness of Breath Last Admin: 07/24/18 05:36 Dose: 2 mg Oseltamivir Phosphate (Tamiflu) 75 mg PO ONETIME ONE Stop: 07/23/18 18:17 Last Admin: 07/23/18 18:41 Dose: 75 mg Oseltamivir Phosphate (Tamiflu) 75 mg PO BID [facility] Last Admin: 07/23/18 21:15 Dose: Not Given Potassium Chloride (Klor-Con M20) 40 meq PO BID [facility] Warfarin Sodium (Coumadin) 5 mg PO MONIKATHERNÁN [facility] Warfarin Sodium (Coumadin) 7.5 mg PO JOSE DE JESUS [facility] - Exam Quality Assessment: Supplemental Oxygen General: Sedated, Other (on BIPAP) HEENT: Pupils Equal, Pupils Reactive Neck: Supple, Trachea Midline, No JVD, No Thyromegaly Lungs: Normal Respiratory Effort, Decreased Breath Sounds Cardiovascular: Regular Rate, Regular Rhythm GI/Abdominal Exam: Normal Bowel Sounds, Soft, Non-Tender, No Organomegaly, No Distention, No Abnormal Bruit, Other (Obese) (Male) Exam: Other (indewlling manley catheter) Back Exam: Other (deferred) Extremities: Non-Tender, Pedal Edema, Slow Capillary Refill Peripheral Pulses: 2+: Dorsalis Pedis (L), Dorsalis Pedis (R) Skin: Warm, Dry, Intact Neurological: Other (deferred) Psy/Mental Status: Other (sedated) - Problem List Review Problem List Initiated/Reviewed/Updated: Yes - Plan Plan:: Impression/Plan: Acute: Influenza B positive - Has Tamiflu but has not been able to take it due to NPO status - He gets significantly hypoxic as soon as he comes off BIPAP - No true influenza infection; his confirmatory test is negative CHF, functional class III, stage C - Acute decompensated heart failure; carries a hx/o HF with Unknown EF - Query RHF>LHF - Heart failure protocol - Currently on Lasix drip - 2D echo ordered; U/S tech not able to perform due to lack of cooperation from him Supratherapeutic INR - History of A fib, HR controlled - INR 6.6; Warfarin held - May need to lower it to 1.5 or lower if family wants to proceed with thoracentesis Compressive Atelectasis Superimposed by Pleural Effusion - Opacified left mid and lower lung on chest x-ray - Afebrile but with mild leukocytosis - CRP is 25.6 - Continue IV Azithromycin/Rocephin - Offered therapeutic thoracentesis at beside however I explained to his family that we would only consider it once his INR is at or lower than 1.5 rto prevent significant bleeding - Informed his family the goal is try to find something to help him calm down. 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 Explained risk and benefits to his family and they agreed with the plan - IVP 2.5 mg Haldol x1 now and will adjust dose base on his response - Serial EKGS to monitor for QT prolongation Chronic: Hx/o PAF HTN HLD SOB S/p A1CD Placement Seizure disorder GERD OA/Gout Urine/Stool Incontinence Anemia Hypothyroidism Mental Retardation Dementia Depression Plan: He is clinically stable initially but once his PRN meds (IV Morphine and Ativan ) wear off, he gets easily agitated and combative Continue Lasix gtt for now Aspiration and Fall Precautions Hold Oral Meds Consult dietary PT/OT when appropriate DVT/GI prophylaxis: SCDs and Supratherapeutic INR and H2B IVP BID Code status: DNR/DNI Prognosis is guarded to poor. He has not been able to come off BIPAP due to significant hypoxia. Met up with his sister and [id number] at bedside. Updated them about his clinical status and possible treatment plan. Offered therapeutic thoracentesis at bedside after explaining risks and benefits with them. However our goal is get his INR at subtherapeutic range and find a better medication to help him calm down and hopefully does not require moderate sedation or possibly take him to OR to do it.
[2018-07-24] MEDS: LORazepam 2 MG/ML SDV IVPUSH PRN (13:20)
[2018-07-24] MEDS ORDERED: Haloperidol Lactate 5 MG/ML SDV IVPUSH ONE ×2 (13:30→20:42)
[2018-07-24] MEDS: Furosemide 100 MG in Sodium Chloride 0.9% 90 ML IV SCH (16:24)
[2018-07-24] MEDS ORDERED: LORazepam 2 MG/ML SDV IVPUSH PRN (17:44)
[2018-07-24] MEDS ORDERED: Phenytoin 100 MG Cap.ER PO SCH (18:00)
[2018-07-24] MEDS ORDERED: Calcitriol 0.25 MCG Cap PO SCH (18:00)
[2018-07-24] MEDS ORDERED: Simvastatin 20 MG Tab PO SCH (21:00)
[2018-07-25] MEDS ORDERED: Haloperidol Lactate 5 MG/ML SDV ONE (01:17)
[2018-07-25] MEDS ORDERED: Haloperidol Lactate 5 MG/ML SDV IVPUSH ONE (01:30)
[2018-07-25] MEDS: LORazepam 2 MG/ML SDV IVPUSH PRN ×4 (04:30→20:50)
[2018-07-25] MEDS: Levothyroxine 88 MCG Tab PO SCH (05:39)
[2018-07-25] MEDS: Albuterol/Ipratropium 3.0-0.5 MG/3 ML Neb Soln NEB SCH ×2 (05:48→10:50)
[2018-07-25] MEDS: LORazepam 0.5 MG Tab PO SCH (08:26)
[2018-07-25] MEDS: Donepezil 10 MG Tab PO SCH (08:26)
[2018-07-25] MEDS: Allopurinol 300 MG Tab PO SCH (08:27)
[2018-07-25] MEDS: Citalopram 20 MG Tab PO SCH (08:27)
[2018-07-25] MEDS: Sertraline 50 MG Tab PO SCH (08:27)
[2018-07-25] MEDS: Carvedilol 12.5 MG Tab PO SCH (08:27)
[2018-07-25] MEDS: Oseltamivir 75 MG Cap PO SCH (08:27)
[2018-07-25] MEDS: Ferrous Sulfate 325 MG Tab PO SCH (08:27)
[2018-07-25] MEDS: Fenofibrate Nanocrystallized 145 MG Tab PO SCH (08:27)
[2018-07-25] MEDS ORDERED: Famotidine 20 MG/2 ML SDV IVPUSH SCH (09:00)
[2018-07-25] MEDS ORDERED: LORazepam 2 MG/ML SDV IVPUSH ONE ×2 (14:03→14:30)
--- NOTE | 2018-07-25 14:10 | PCM.SN ---
- Free Text/Narrative Note: Just met with his sister at bedside. She discussed his current status with his local provider and agreed to make him comfort measures at this point. She agreed to stop everything except for comfort measures medications. We will go ahead and activate end of life care.
--- NOTE | 2018-07-25 14:41 | PCM.PN ---
- General Info Date of Service: 07/25/18 Admission Dx/Problem (Free Text): Admission Diagnosis/Problem Admission Diagnosis/Problem Pleural effusion Subjective Update: Follow Up Functional Status: Reports: Pain Controlled, Urinating. Denies: Tolerating Diet , Ambulating, New Symptoms - Review of Systems General: Denies: Fever, Chills HEENT: Reports: No Symptoms Pulmonary: Reports: Shortness of Breath. Denies: Cough, Sputum Cardiovascular: Denies: Chest Pain, Dyspnea on Exertion, Lightheadedness Gastrointestinal: Denies: Abdominal Pain, Nausea, Vomiting Genitourinary: Reports: No Symptoms Musculoskeletal: Reports: No Symptoms. Denies: Joint Swelling Skin: Denies: Mottled, Pallor, Rash Neurological: Reports: Confusion, Weakness, Gait Disturbance Psychiatric: Reports: Anxiety, Agitation. Denies: Depression, Hallucinations Systems Review Comment:: He had a rough night per night nurse. 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 He was given Haldol but did not respond to it. In fact, he was pulling on his BIPAP and ended up having significant respiratory distress. So he had a trial of supplemental O2 and subsequently increased his O2 requirement based on his O2 Sat. However he was put back on BIPAP this morning due to worsening hypoxia. Since admission, he has been NPO and unable to take any oral pills. His INR is 1.9 but his ProBNP has considerably gone up to 2559. - Patient Data Vitals - Most Recent: Last Vital Signs Temp 36.6 C 07/25/18 08:00 Pulse 69 07/25/18 12:52 Resp 29 H 07/25/18 12:52 BP 151/63 H 07/25/18 12:52 Pulse Ox 90 L 07/25/18 12:52 Weight - Most Recent: 122.334 kg I&O - Last 24 Hours: Intake & Output 07/24/18 07/25/18 07/25/18 22:59 06:59 14:59 Intake Total 397 100 Output Total 545 830 525 Balance -148 730 525 Lab Results Last 24 Hours: Laboratory Results - last 24 hr 07/23/18 07/24/18 07/25/18 Range/Units 20:45 13:50 06:25 WBC 10.97 H (4.23-9.07) K/mm3 RBC 3.71 L (4.63-6.08) M/mm3 Hgb 11.0 L (13.7-17.5) gm/L Hct 36.6 L (40.1-51.0) % MCV 98.7 H (79.0-92.2) fl MCH 29.6 (25.7-32.2) pg MCHC 30.1 L (32.2-35.5) g/dl RDW Std Deviation 50.3 H (35.1-43.9) fL Plt Count 315 (163-337) K/mm3 MPV 9.2 L (9.4-12.3) fl Neut % (Auto) 80.4 H (34.0-67.9) % Lymph % (Auto) 7.7 L (21.8-53.1) % [place] % (Auto) 10.2 (5.3-12.2) % Eos % (Auto) 0.5 L (0.8-7.0) Baso % (Auto) 0.3 (0.1-1.2) % Neut # (Auto) 8.82 H (1.78-5.38) K/mm3 Lymph # (Auto) 0.84 L (1.32-3.57) K/mm3 [place] # (Auto) 1.12 H (0.30-0.82) K/mm3 Eos # (Auto) 0.06 (0.04-0.54) K/mm3 Baso # (Auto) 0.03 (0.01-0.08) K/mm3 Manual Slide Review Normal smear PT 74.3 H* (9.5-12.1) SECONDS INR 7.08 H* Sodium (136-145) mEq/L Potassium (3.5-5.1) mEq/L Chloride (98-107) mEq/L Carbon Dioxide (21-32) mEq/L Anion Gap (5-15) BUN (7-18) mg/dL Creatinine (0.7-1.3) mg/dL Est Cr Clr Drug Dosing mL/min Estimated GFR (MDRD) (>60) mL/min BUN/Creatinine Ratio (14-18) Glucose (80-115) mg/dL Lactic Acid (0.4-2.0) mmol/L Calcium (8.5-10.1) mg/dL C-Reactive Protein (<1.0) mg/dL NT-Pro-B Natriuret Pep (0-125) pg/mL Adenovirus (PCR) Not detected (Not Detected) B. pertussis DNA (PCR) Not detected (Not Detected) B.parapertussis DNA PCR Not detected (Not Detected) C. pneumoniae DNA (PCR) Not detected (Not Detected) Coronavirus (PCR) Not detected (Not Detected) Human Metapneumovir PCR Not detected (Not Detected) Influenza A (RT-PCR) Not detected (Not Detected) Influenza B (RT-PCR) Not detected (Not Detected) M. pneumoniae (PCR) Not detected (Not Detected) Parainfluen 1,2,3,4 PCR Not detected (Not Detected) RSV (PCR) Not detected (Not Detected) Entero/Rhino (PCR) Not detected (Not Detected) 07/25/18 07/25/18 07/25/18 Range/Units 06:25 06:25 06:25 WBC (4.23-9.07) K/mm3 RBC (4.63-6.08) M/mm3 Hgb (13.7-17.5) gm/L Hct (40.1-51.0) % MCV (79.0-92.2) fl MCH (25.7-32.2) pg MCHC (32.2-35.5) g/dl RDW Std Deviation (35.1-43.9) fL Plt Count (163-337) K/mm3 MPV (9.4-12.3) fl Neut % (Auto) (34.0-67.9) % Lymph % (Auto) (21.8-53.1) % [place] % (Auto) (5.3-12.2) % Eos % (Auto) (0.8-7.0) Baso % (Auto) (0.1-1.2) % Neut # (Auto) (1.78-5.38) K/mm3 Lymph # (Auto) (1.32-3.57) K/mm3 [place] # (Auto) (0.30-0.82) K/mm3 Eos # (Auto) (0.04-0.54) K/mm3 Baso # (Auto) (0.01-0.08) K/mm3 Manual Slide Review PT (9.5-12.1) SECONDS INR Sodium 144 (136-145) mEq/L Potassium 3.9 (3.5-5.1) mEq/L Chloride 103 (98-107) mEq/L Carbon Dioxide 38 H (21-32) mEq/L Anion Gap 6.9 (5-15) BUN 31 H (7-18) mg/dL Creatinine 1.1 (0.7-1.3) mg/dL Est Cr Clr Drug Dosing 72.29 mL/min Estimated GFR (MDRD) > 60 (>60) mL/min BUN/Creatinine Ratio 28.2 H (14-18) Glucose 108 (80-115) mg/dL Lactic Acid 0.9 (0.4-2.0) mmol/L Calcium 8.6 (8.5-10.1) mg/dL C-Reactive Protein 26.1 H* (<1.0) mg/dL NT-Pro-B Natriuret Pep 2559 H (0-125) pg/mL Adenovirus (PCR) (Not Detected) B. pertussis DNA (PCR) (Not Detected) B.parapertussis DNA PCR (Not Detected) C. pneumoniae DNA (PCR) (Not Detected) Coronavirus (PCR) (Not Detected) Human Metapneumovir PCR (Not Detected) Influenza A (RT-PCR) (Not Detected) Influenza B (RT-PCR) (Not Detected) M. pneumoniae (PCR) (Not Detected) Parainfluen 1,2,3,4 PCR (Not Detected) RSV (PCR) (Not Detected) Entero/Rhino (PCR) (Not Detected) 07/25/18 Range/Units 06:25 WBC (4.23-9.07) K/mm3 RBC (4.63-6.08) M/mm3 Hgb (13.7-17.5) gm/L Hct (40.1-51.0) % MCV (79.0-92.2) fl MCH (25.7-32.2) pg MCHC (32.2-35.5) g/dl RDW Std Deviation (35.1-43.9) fL Plt Count (163-337) K/mm3 MPV (9.4-12.3) fl Neut % (Auto) (34.0-67.9) % Lymph % (Auto) (21.8-53.1) % [place] % (Auto) (5.3-12.2) % Eos % (Auto) (0.8-7.0) Baso % (Auto) (0.1-1.2) % Neut # (Auto) (1.78-5.38) K/mm3 Lymph # (Auto) (1.32-3.57) K/mm3 [place] # (Auto) (0.30-0.82) K/mm3 Eos # (Auto) (0.04-0.54) K/mm3 Baso # (Auto) (0.01-0.08) K/mm3 Manual Slide Review PT 20.6 H (9.5-12.1) SECONDS INR 1.91 Sodium (136-145) mEq/L Potassium (3.5-5.1) mEq/L Chloride (98-107) mEq/L Carbon Dioxide (21-32) mEq/L Anion Gap (5-15) BUN (7-18) mg/dL Creatinine (0.7-1.3) mg/dL Est Cr Clr Drug Dosing mL/min Estimated GFR (MDRD) (>60) mL/min BUN/Creatinine Ratio (14-18) Glucose (80-115) mg/dL Lactic Acid (0.4-2.0) mmol/L Calcium (8.5-10.1) mg/dL C-Reactive Protein (<1.0) mg/dL NT-Pro-B Natriuret Pep (0-125) pg/mL Adenovirus (PCR) (Not Detected) B. pertussis DNA (PCR) (Not Detected) B.parapertussis DNA PCR (Not Detected) C. pneumoniae DNA (PCR) (Not Detected) Coronavirus (PCR) (Not Detected) Human Metapneumovir PCR (Not Detected) Influenza A (RT-PCR) (Not Detected) Influenza B (RT-PCR) (Not Detected) M. pneumoniae (PCR) (Not Detected) Parainfluen 1,2,3,4 PCR (Not Detected) RSV (PCR) (Not Detected) Entero/Rhino (PCR) (Not Detected) Michael Results Last 24 Hours: Microbiology 07/23/18 21:30 Urine Culture - Final Urine, Catheterized NO GROWTH AFTER 2 DAYS 07/23/18 21:30 Streptococcus pneumoniae Antigen (M - Final Urine 07/23/18 20:41 Aerobic Blood Culture - Preliminary Blood - Venous - Lab Draw NO GROWTH AFTER 1 DAY Anaerobic Blood Culture - Final 07/23/18 20:30 Aerobic Blood Culture - Preliminary Blood - Venous NO GROWTH AFTER 1 DAY Anaerobic Blood Culture - Preliminary NO GROWTH AFTER 1 DAY Med Orders - Current: Current Medications Lorazepam (Ativan) 3 mg IVPUSH Q4H PRN PRN Reason: Anxiety Lorazepam (Ativan) 2 mg IVPUSH ONETIME ONE Stop: 07/25/18 14:31 Morphine Sulfate (Morphine) 2 mg IVPUSH Q3H PRN PRN Reason: Dyspnea Last Admin: 07/24/18 20:08 Dose: 2 mg Discontinued Medications Albuterol (Proventil Neb Soln) 2.5 mg NEB Q4HRRT ASHLEIGH Albuterol (Proventil Neb Soln) 2.5 mg NEB Q4HRRT PRN PRN Reason: Shortness of Breath Last Admin: 07/25/18 04:52 Dose: 2.5 mg Albuterol/Ipratropium (Duoneb 3.0-0.5 Mg/3 Ml) 3 ml NEB ONETIME ONE Stop: 07/23/18 15:48 Last Admin: 07/23/18 16:00 Dose: 3 ml Albuterol/Ipratropium (Duoneb 3.0-0.5 Mg/3 Ml) 3 ml NEB QID PRN PRN Reason: Shortness of Breath Albuterol/Ipratropium (Duoneb 3.0-0.5 Mg/3 Ml) 3 ml NEB QID ASHLEIGH Albuterol/Ipratropium (Duoneb 3.0-0.5 Mg/3 Ml) 3 ml NEB QIDRT [facility], [facility] Last Admin: 07/25/18 10:50 Dose: 3 ml Allopurinol (Zyloprim) 300 mg PO DAILY [facility], [facility] Last Admin: 07/25/18 08:27 Dose: Not Given Calcitriol (Rocaltrol) 0.5 mcg PO QPM [facility], [facility]1983 Last Admin: 07/24/18 17:38 Dose: Not Given Carvedilol (Coreg) 12.5 mg PO BID [facility], [facility] Last Admin: 07/25/18 08:27 Dose: Not Given Citalopram Hydrobromide (Celexa) 20 mg PO DAILY [facility] Last Admin: 07/25/18 08:27 Dose: Not Given Donepezil HCl (Aricept) 5 mg PO DAILY [facility] Last Admin: 07/25/18 08:26 Dose: Not Given Famotidine (Pepcid) 20 mg IVPUSH BID [facility], [facility] Last Admin: 07/25/18 09:55 Dose: 20 mg Fenofibrate (Tricor) 145 mg PO DAILY [facility] Last Admin: 07/25/18 08:27 Dose: Not Given Ferrous Sulfate (Ferrous Sulfate) 325 mg PO DAILY [facility] Last Admin: 07/25/18 08:27 Dose: Not Given Furosemide (Lasix) 40 mg IVPUSH NOW ONE Stop: 07/23/18 18:17 Last Admin: 07/23/18 18:41 Dose: 40 mg Haloperidol Lactate (Haldol) 2.5 mg IVPUSH ONETIME ONE Stop: 07/24/18 13:31 Last Admin: 07/24/18 15:12 Dose: 2.5 mg Haloperidol Lactate (Haldol) 5 mg IVPUSH ONETIME ONE Stop: 07/24/18 20:43 Last Admin: 07/24/18 20:43 Dose: 5 mg Haloperidol Lactate (Haldol) Confirm Administered Dose 5 mg .ROUTE .STK-MED ONE Stop: 07/25/18 01:18 Last Admin: 07/25/18 01:33 Dose: Not Given Haloperidol Lactate (Haldol) 5 mg IVPUSH ONETIME ONE Stop: 07/25/18 01:31 Last Admin: 07/25/18 01:35 Dose: 5 mg Furosemide 100 mg/ Sodium (Chloride) 100 mls @ 4 mls/hr IV TITRATE [facility], [facility]; Protocol Last Admin: 07/24/18 16:24 Dose: 4 mg/hr, 4 mls/hr Azithromycin 500 mg/ Sodium (Chloride) 250 mls @ 250 mls/hr IV Q24H [facility] Last Admin: 07/24/18 12:13 Dose: Not Given Ceftriaxone Sodium 2 gm/ (Sodium Chloride) 100 mls @ 200 mls/hr IV Q24H [facility] Last Admin: 07/24/18 12:14 Dose: Not Given Ceftriaxone Sodium 2 gm/ (Sodium Chloride) 100 mls @ 200 mls/hr IV Q24H [facility] Last Admin: 07/24/18 14:21 Dose: 200 mls/hr Azithromycin 500 mg/ Sodium (Chloride) 250 mls @ 250 mls/hr IV Q24H [facility] Last Admin: 07/24/18 14:51 Dose: 250 mls/hr Phytonadione 2.5 mg/ Sodium (Chloride) 50.25 mls @ 100 mls/hr IV NOW ONE Stop: 07/24/18 21:22 Last Admin: 07/24/18 21:20 Dose: 100 mls/hr Levothyroxine Sodium (Synthroid) 88 mcg PO [id number] [facility] Last Admin: 07/25/18 05:39 Dose: Not Given Lorazepam (Ativan) 1 mg IVPUSH ONETIME ONE Stop: 07/23/18 18:11 Last Admin: 07/23/18 18:18 Dose: 1 mg Lorazepam (Ativan) 0.5 mg PO DAILY [facility] Last Admin: 07/25/18 08:26 Dose: Not Given Lorazepam (Ativan) 1 mg IVPUSH ONETIME ONE Stop: 07/23/18 21:15 Last Admin: 07/23/18 23:30 Dose: 1 mg Lorazepam (Ativan) 1 mg IVPUSH Q8H PRN PRN Reason: Anxiety Last Admin: 07/24/18 06:20 Dose: 1 mg Lorazepam (Ativan) 2 mg IVPUSH STAT ONE Stop: 07/24/18 07:43 Last Admin: 07/24/18 07:46 Dose: 2 mg Lorazepam (Ativan) 2 mg IVPUSH Q4H PRN PRN Reason: Anxiety Last Admin: 07/25/18 12:23 Dose: 2 mg Lorazepam (Ativan) 2 mg IVPUSH Q4H PRN PRN Reason: Seizures Lorazepam (Ativan) 2 mg IVPUSH ONETIME ONE Stop: 07/25/18 14:04 Morphine Sulfate (Morphine) 2 mg IVPUSH ONETIME ONE Stop: 07/23/18 21:14 Last Admin: 07/23/18 21:24 Dose: 2 mg Morphine Sulfate (Morphine) 2 mg IVPUSH Q4H PRN PRN Reason: Shortness of Breath Last Admin: 07/24/18 05:36 Dose: 2 mg Oseltamivir Phosphate (Tamiflu) 75 mg PO ONETIME ONE Stop: 07/23/18 18:17 Last Admin: 07/23/18 18:41 Dose: 75 mg Oseltamivir Phosphate (Tamiflu) 75 mg PO BID [facility] Last Admin: 07/23/18 21:15 Dose: Not Given Oseltamivir Phosphate (Tamiflu) 75 mg PO BID [facility] Last Admin: 07/25/18 08:27 Dose: Not Given Phenytoin Sodium (Phenytoin) 400 mg PO QPM [facility] Last Admin: 07/24/18 17:38 Dose: Not Given Phytonadione (Aquamephyton) 2.5 mg IM ONETIME ONE Stop: 07/24/18 14:58 Last Admin: 07/24/18 15:33 Dose: 2.5 mg Phytonadione (Aquamephyton) 2.5 mg SUBCUT ONETIME ONE Stop: 07/25/18 11:01 Last Admin: 07/25/18 11:39 Dose: 2.5 mg Potassium Chloride (Klor-Con M20) 40 meq PO BID [facility] Sertraline HCl (Zoloft) 50 mg PO DAILY [facility] Last Admin: 07/25/18 08:27 Dose: Not Given Simvastatin (Zocor) 20 mg PO BEDTIME [facility] Last Admin: 07/24/18 21:21 Dose: Not Given Sodium Chloride (Saline Flush) 10 ml FLUSH ASDIRECTED PRN PRN Reason: Keep Vein Open Last Admin: 07/23/18 16:23 Dose: 10 ml Warfarin Sodium (Coumadin) 5 mg [facility] Warfarin Sodium (Coumadin) 7.5 mg PO [facility] - Exam Quality Assessment: Supplemental Oxygen (on BIPAP), Restraints General: Moderate Distress, Other (on BIPAP) HEENT: Pupils Equal, Pupils Reactive Neck: Supple, No JVD, No Thyromegaly Lungs: Normal Respiratory Effort, Decreased Breath Sounds Cardiovascular: Irregular Rhythm GI/Abdominal Exam: Normal Bowel Sounds, Soft, Non-Tender, No Organomegaly, No Distention, No Abnormal Bruit, Other (Obese) (Male) Exam: Other (Indwelling manley catheter) Extremities: Non-Tender, No Pedal Edema, Normal Capillary Refill Peripheral Pulses: 2+: Dorsalis Pedis (L), Dorsalis Pedis (R) Skin: Warm, Dry, Intact Neurological: Other (deferred: not appropriate) Psy/Mental Status: Anxious, Agitated Physical Findings Comments:: He has 1:1 care and his sister is also at bedside holding his hands to calm him down. - Problem List Review Problem List Initiated/Reviewed/Updated: Yes - My Orders Last 24 Hours: My Active Orders 07/25/18 08:00 EKG 12 Lead [EKG Documentation Completion] [RC] ROUTINE 07/25/18 14:03 Code Status [Resuscitation Status] Routine 07/25/18 14:11 Consult to End of Life Care [Consult to Palliative Care] [CONS] Routine Consult to Hospice [CONS] Routine 07/25/18 14:12 LORazepam [Ativan] 3 mg IVPUSH Q4H PRN 07/25/18 14:30 LORazepam [Ativan] 2 mg IVPUSH ONETIME ONE - Plan Plan:: Impression/Plan: Acute: Primary Diagnosis: End of Life Care - His sister decided to make him comfort measures after she talked to his PCP - Comfort measures only +/- manley catheter or supplemental O2 - Hospice/Palliative Care consult - SW/CM for d/c planning Secondary Diagnoses: Respiratory Failure - Hypercapneic on NIPPV - He is dependent with PRN IV Ativan and Morphine for comfort - He has been on BIPAP since I took over care of the service - Will switch to nasal cannula as he is now comfort measures CHF, functional class III, stage C - Acute decompensated heart failure; carries a hx/o HF with Unknown EF - Query RHF>LHF - Heart failure protocol - ProBNP is now higher than baseline - Currently on Lasix drip; will discontinue - 2D echo ordered; U/S tech not able to perform due to lack of cooperation from him Supratherapeutic INR - History of A fib, HR controlled - INR 6.6; Warfarin held - May need to lower it to 1.5 or lower if family wants to proceed with thoracentesis--> now 1.9 Compressive Atelectasis Superimposed by Pleural Effusion - Opacified left mid and lower lung on chest x-ray - Afebrile but with mild leukocytosis - CRP is 25.6 - Continue IV Azithromycin/Rocephin - Offered therapeutic thoracentesis at beside however I explained to his family that we would only consider it once his INR is at or lower than 1.5 rto prevent significant bleeding - Informed his family the goal is try to find something to help him calm down. 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 Explained risk and benefits to his family and they agreed with the plan - IVP 2.5 mg Haldol x1 now and will adjust dose base on his response - Serial EKGS to monitor for QT prolongation - He is now on comfort medications Inactive: Influenza B positive - Has Tamiflu but has not been able to take it due to NPO status - He gets significantly hypoxic as soon as he comes off BIPAP - No true influenza infection; his confirmatory test is negative Chronic: Hx/o PAF HTN HLD SOB S/p A1CD Placement Seizure disorder GERD OA/Gout Urine/Stool Incontinence Anemia Hypothyroidism Mental Retardation Dementia Depression Plan: He is comfortable with PRN meds IV Morphine and Ativan Discontinue Lasix gtt and DVT/GI prophylaxis Keep manley catheter in and may use supplemental O2 Code status: DNR/DNI/Comfort Measures Prognosis is now poor with him coming off BIPAP and w/o therapeutic thoracentesis. LOS anticipate > 96 pending placement
[2018-07-25] MEDS ORDERED: Warfarin 7.5 MG Tab PO SCH (19:23)
[2018-07-25] MEDS: Morphine 2 MG/ML Syringe IVPUSH PRN (21:41)
[2018-07-26] MEDS: Morphine 2 MG/ML Syringe IVPUSH PRN ×3 (01:26→17:05)
--- NOTE | 2018-07-26 09:20 | PCM.PN ---
- General Info Date of Service: 07/26/18 Admission Dx/Problem (Free Text): Admission Diagnosis/Problem Admission Diagnosis/Problem Pleural effusion Subjective Update: Follow Up Functional Status: Reports: Pain Controlled. Denies: New Symptoms - Review of Systems General: Denies: Fever, Chills HEENT: Reports: No Symptoms Pulmonary: Reports: No Symptoms Cardiovascular: Reports: No Symptoms Gastrointestinal: Denies: Abdominal Pain, Nausea, Vomiting Genitourinary: Reports: No Symptoms Musculoskeletal: Reports: No Symptoms Skin: Denies: Cyanosis, Pallor, Diaphoresis Neurological: Reports: No Symptoms Psychiatric: Denies: Anxiety, Agitation, Hallucinations Systems Review Comment:: No overnight or acute issues. He is comfortable and peaceful in bed. He has on supplemental O2 placed on his mouth. - Patient Data Vitals - Most Recent: Last Vital Signs Temp 36.6 C 07/25/18 08:00 Pulse 69 07/25/18 12:52 Resp 29 H 07/25/18 12:52 BP 151/63 H 07/25/18 12:52 Pulse Ox 90 L 07/25/18 12:52 Weight - Most Recent: 124.284 kg I&O - Last 24 Hours: Intake & Output 07/25/18 07/26/18 07/26/18 22:59 06:59 14:59 Intake Total 24 Output Total 300 Balance 24 -300 Michael Results Last 24 Hours: Microbiology 07/23/18 20:41 Aerobic Blood Culture - Preliminary Blood - Venous - Lab Draw NO GROWTH AFTER 2 DAYS Anaerobic Blood Culture - Final 07/23/18 20:30 Aerobic Blood Culture - Preliminary Blood - Venous NO GROWTH AFTER 2 DAYS Anaerobic Blood Culture - Preliminary NO GROWTH AFTER 2 DAYS 07/23/18 21:30 Urine Culture - Final Urine, Catheterized NO GROWTH AFTER 2 DAYS Med Orders - Current: Current Medications Lorazepam (Ativan) 3 mg IVPUSH Q4H PRN PRN Reason: Anxiety Last Admin: 07/25/18 20:50 Dose: 3 mg Morphine Sulfate (Morphine) 2 mg IVPUSH Q3H PRN PRN Reason: Dyspnea Last Admin: 07/26/18 09:01 Dose: 2 mg Discontinued Medications Albuterol (Proventil Neb Soln) 2.5 mg NEB Q4HRRT [facility] Albuterol (Proventil Neb Soln) 2.5 mg NEB Q4HRRT PRN PRN Reason: Shortness of Breath Last Admin: 07/25/18 04:52 Dose: 2.5 mg Albuterol/Ipratropium (Duoneb 3.0-0.5 Mg/3 Ml) 3 ml NEB ONETIME ONE Stop: 07/23/18 15:48 Last Admin: 07/23/18 16:00 Dose: 3 ml Albuterol/Ipratropium (Duoneb 3.0-0.5 Mg/3 Ml) 3 ml NEB QID PRN PRN Reason: Shortness of Breath Albuterol/Ipratropium (Duoneb 3.0-0.5 Mg/3 Ml) 3 ml NEB QID [facility] Albuterol/Ipratropium (Duoneb 3.0-0.5 Mg/3 Ml) 3 ml NEB QIDRT [facility] Last Admin: 07/25/18 10:50 Dose: 3 ml Allopurinol (Zyloprim) 300 mg PO DAILY [facility] Last Admin: 07/25/18 08:27 Dose: Not Given Calcitriol (Rocaltrol) 0.5 mcg PO QPM [facility] Last Admin: 07/24/18 17:38 Dose: Not Given Carvedilol (Coreg) 12.5 mg PO BID [facility] Last Admin: 07/25/18 08:27 Dose: Not Given Citalopram Hydrobromide (Celexa) 20 mg PO DAILY [facility] Last Admin: 07/25/18 08:27 Dose: Not Given Donepezil HCl (Aricept) 5 mg PO DAILY [facility] Last Admin: 07/25/18 08:26 Dose: Not Given Famotidine (Pepcid) 20 mg IVPUSH BID [facility] Last Admin: 07/25/18 09:55 Dose: 20 mg Fenofibrate (Tricor) 145 mg PO DAILY [facility] Last Admin: 07/25/18 08:27 Dose: Not Given Ferrous Sulfate (Ferrous Sulfate) 325 mg PO DAILY [facility] Last Admin: 07/25/18 08:27 Dose: Not Given Furosemide (Lasix) 40 mg IVPUSH NOW ONE Stop: 07/23/18 18:17 Last Admin: 07/23/18 18:41 Dose: 40 mg Haloperidol Lactate (Haldol) 2.5 mg IVPUSH ONETIME ONE Stop: 07/24/18 13:31 Last Admin: 07/24/18 15:12 Dose: 2.5 mg Haloperidol Lactate (Haldol) 5 mg IVPUSH ONETIME ONE Stop: 07/24/18 20:43 Last Admin: 07/24/18 20:43 Dose: 5 mg Haloperidol Lactate (Haldol) Confirm Administered Dose 5 mg .ROUTE .STK-MED ONE Stop: 07/25/18 01:18 Last Admin: 07/25/18 01:33 Dose: Not Given Haloperidol Lactate (Haldol) 5 mg IVPUSH ONETIME ONE Stop: 07/25/18 01:31 Last Admin: 07/25/18 01:35 Dose: 5 mg Furosemide 100 mg/ Sodium (Chloride) 100 mls @ 4 mls/hr IV TITRATE [facility]; Protocol Last Admin: 07/24/18 16:24 Dose: 4 mg/hr, 4 mls/hr Azithromycin 500 mg/ Sodium (Chloride) 250 mls @ 250 mls/hr IV Q24H [facility] Last Admin: 07/24/18 12:13 Dose: Not Given Ceftriaxone Sodium 2 gm/ (Sodium Chloride) 100 mls @ 200 mls/hr IV Q24H [facility] Last Admin: 07/24/18 12:14 Dose: Not Given Ceftriaxone Sodium 2 gm/ (Sodium Chloride) 100 mls @ 200 mls/hr IV Q24H [facility] Last Admin: 07/24/18 14:21 Dose: 200 mls/hr Azithromycin 500 mg/ Sodium (Chloride) 250 mls @ 250 mls/hr IV Q24H [facility] Last Admin: 07/24/18 14:51 Dose: 250 mls/hr Phytonadione 2.5 mg/ Sodium (Chloride) 50.25 mls @ 100 mls/hr IV NOW ONE Stop: 07/24/18 21:22 Last Admin: 07/24/18 21:20 Dose: 100 mls/hr Levothyroxine Sodium (Synthroid) 88 mcg PO [id number] [facility] Last Admin: 07/25/18 05:39 Dose: Not Given Lorazepam (Ativan) 1 mg IVPUSH ONETIME ONE Stop: 07/23/18 18:11 Last Admin: 07/23/18 18:18 Dose: 1 mg Lorazepam (Ativan) 0.5 mg PO DAILY [facility] Last Admin: 07/25/18 08:26 Dose: Not Given Lorazepam (Ativan) 1 mg IVPUSH ONETIME ONE Stop: 07/23/18 21:15 Last Admin: 07/23/18 23:30 Dose: 1 mg Lorazepam (Ativan) 1 mg IVPUSH Q8H PRN PRN Reason: Anxiety Last Admin: 07/24/18 06:20 Dose: 1 mg Lorazepam (Ativan) 2 mg IVPUSH STAT ONE Stop: 07/24/18 07:43 Last Admin: 07/24/18 07:46 Dose: 2 mg Lorazepam (Ativan) 2 mg IVPUSH Q4H PRN PRN Reason: Anxiety Last Admin: 07/25/18 12:23 Dose: 2 mg Lorazepam (Ativan) 2 mg IVPUSH Q4H PRN PRN Reason: Seizures Lorazepam (Ativan) 2 mg IVPUSH ONETIME ONE Stop: 07/25/18 14:04 Last Admin: 07/25/18 14:34 Dose: Not Given Lorazepam (Ativan) 2 mg IVPUSH ONETIME ONE Stop: 07/25/18 14:31 Last Admin: 07/25/18 14:28 Dose: 2 mg Morphine Sulfate (Morphine) 2 mg IVPUSH ONETIME ONE Stop: 07/23/18 21:14 Last Admin: 07/23/18 21:24 Dose: 2 mg Morphine Sulfate (Morphine) 2 mg IVPUSH Q4H PRN PRN Reason: Shortness of Breath Last Admin: 07/24/18 05:36 Dose: 2 mg Oseltamivir Phosphate (Tamiflu) 75 mg PO ONETIME ONE Stop: 07/23/18 18:17 Last Admin: 07/23/18 18:41 Dose: 75 mg Oseltamivir Phosphate (Tamiflu) 75 mg PO BID [facility] Last Admin: 07/23/18 21:15 Dose: Not Given Oseltamivir Phosphate (Tamiflu) 75 mg PO BID [facility] Last Admin: 07/25/18 08:27 Dose: Not Given Phenytoin Sodium (Phenytoin) 400 mg PO QPM [facility] Last Admin: 07/24/18 17:38 Dose: Not Given Phytonadione (Aquamephyton) 2.5 mg IM ONETIME ONE Stop: 07/24/18 14:58 Last Admin: 07/24/18 15:33 Dose: 2.5 mg Phytonadione (Aquamephyton) 2.5 mg SUBCUT ONETIME ONE Stop: 07/25/18 11:01 Last Admin: 07/25/18 11:39 Dose: 2.5 mg Potassium Chloride (Klor-Con M20) 40 meq PO BID [facility] Sertraline HCl (Zoloft) 50 mg PO DAILY [facility] Last Admin: 07/25/18 08:27 Dose: Not Given Simvastatin (Zocor) 20 mg PO BEDTIME [facility] Last Admin: 07/24/18 21:21 Dose: Not Given Sodium Chloride (Saline Flush) 10 ml FLUSH ASDIRECTED PRN PRN Reason: Keep Vein Open Last Admin: 07/23/18 16:23 Dose: 10 ml Warfarin Sodium (Coumadin) 5 mg PO SUMOTUTHFR [facility] Warfarin Sodium (Coumadin) 7.5 mg PO WESA [facility] - Exam General: Sedated HEENT: Pupils Equal, Pupils Reactive, Other (Obese) Neck: Supple Lungs: Normal Respiratory Effort Cardiovascular: Regular Rate, Regular Rhythm GI/Abdominal Exam: Normal Bowel Sounds, Soft, Non-Tender, No Organomegaly, No Distention, No Abnormal Bruit, Other (Obese) (Male) Exam: Deferred Back Exam: Other (deferred) Extremities: Normal Inspection, Non-Tender, Normal Capillary Refill Peripheral Pulses: 2+: Dorsalis Pedis (L), Dorsalis Pedis (R) Skin: Warm, Dry, Intact Neurological: Other (deferred: not appropriate) Psy/Mental Status: Other (sedated and comfortable in bed) - Problem List Review Problem List Initiated/Reviewed/Updated: Yes - My Orders Last 24 Hours: My Active Orders 07/25/18 14:03 Code Status [Resuscitation Status] Routine 07/25/18 14:11 Consult to End of Life Care [Consult to Palliative Care] [CONS] Routine Consult to Hospice [CONS] Routine 07/25/18 14:12 LORazepam [Ativan] 3 mg IVPUSH Q4H PRN 07/25/18 14:43 Patient Status [ADT] Routine - Plan Plan:: Impression/Plan: Acute: Primary Diagnosis: End of Life Care - His sister decided to make him comfort measures after she talked to his PCP - Comfort measures only +/- manley catheter or supplemental O2 - Hospice/Palliative Care consult - SW/CM for d/c planning Secondary Diagnoses: Respiratory Failure - Hypercapneic on NIPPV - He is dependent with PRN IV Ativan and Morphine for comfort - He has been on BIPAP since I took over care of the service - Now with nasal cannula on for comfort measures CHF, functional class III, stage C - Acute decompensated heart failure; carries a hx/o HF with Unknown EF - Query RHF>LHF - Heart failure protocol - ProBNP is now higher than baseline - Currently on Lasix drip; will discontinue - 2D echo ordered; U/S tech not able to perform due to lack of cooperation from him Compressive Atelectasis Superimposed by Pleural Effusion - Opacified left mid and lower lung on chest x-ray - Afebrile but with mild leukocytosis - CRP is 25.6 - Continue IV Azithromycin/Rocephin - Offered therapeutic thoracentesis at beside however I explained to his family that we would only consider it once his INR is at or lower than 1.5 rto prevent significant bleeding - Informed his family the goal is try to find something to help him calm down. 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 Explained risk and benefits to his family and they agreed with the plan - IVP 2.5 mg Haldol x1 now and will adjust dose base on his response - Serial EKGS to monitor for QT prolongation - He is now on comfort medications Inactive: Influenza B positive - Has Tamiflu but has not been able to take it due to NPO status - He gets significantly hypoxic as soon as he comes off BIPAP - No true influenza infection; his confirmatory test is negative Supratherapeutic INR - History of A fib, HR controlled - INR 6.6; Warfarin held - May need to lower it to 1.5 or lower if family wants to proceed with thoracentesis--> now 1.9 Chronic: Hx/o PAF HTN HLD SOB S/p A1CD Placement Seizure disorder GERD OA/Gout Urine/Stool Incontinence Anemia Hypothyroidism Mental Retardation Dementia Depression Plan: He remains comfortable with PRN meds IV Morphine and Ativan Keep manley catheter in and may use supplemental O2 Code status: DNR/DNI/Comfort Measures LOS anticipate > 96 pending placement Met up with his family at bedside. Updated them about his clinical status and discharge care plan.
[2018-07-27] MEDS ORDERED: Scopolamine 1.5 MG Transdermal Patch TRDERM PRN (07:33)
--- NOTE | 2018-07-27 08:20 | PCM.DCSUM1 ---
<Rubio Avendano - Last Filed: 07/30/18 07:25> Discharge Summary - Hospital Course HPI Initial Comments: 68 year old male with PMH of seizure disorder, dementia of unclear etiology has been living in assisted living facility. He has had symptoms that suggest CHF exacerbation, and has been taking Ativan to relieve his SOB. He has a history of stool and urine incontinence. He had been seeing cardiologists in [place] who left 2-3 months prior to admission. And will be seeing Dr Flores this month. he has a PMH of AFib, and is on Coumadin with a supratherapeutic INR. he was hypoxic, and has hypercapnia. And has been subsequently started on BiPAP. his sister is his POA, the patient is DNR/DNI. She wishes to pursue SNF at [place]. he will be admitted to the ICU. Resp work documented Influenza B positive, he is in droplet isolation. Diagnosis: Stroke: No Modified Marcin Scale: No Symptoms at All Modified [place] Scale Score: 0 - Discharge Data Discharge Date: 07/27/18 (Admit date: 07/23/18) Discharge Disposition: 20 Condition: - Patient Summary/Data Consults: Consultations 07/23/18 19:29 Consult to Case Management/Service Mechanic [CONS] Routine 07/25/18 14:11 Consult to End of Life Care [Consult to Palliative Care] [CONS] Routine Consult to Hospice [CONS] Routine - Discharge Plan *PRESCRIPTION DRUG MONITORING PROGRAM REVIEWED*: Not Applicable *COPY OF PRESCRIPTION DRUG MONITORING REPORT IN PATIENT NANCY: Not Applicable Referrals: Crystal Galdamez, HOSE MAKER [Primary Care Provider] - - Discharge Summary/Plan Comment DC Time >30 min.: No - General Info Date of Service: 07/27/18 Admission Dx/Problem (Free Text: Admission Diagnosis/Problem Admission Diagnosis/Problem Pleural effusion - Review of Systems Systems Review Comment: Patient . - Patient Data Vitals - Most Recent: Last Vital Signs Temp 97.9 F 07/25/18 08:00 Pulse 69 07/25/18 12:52 Resp 29 H 07/25/18 12:52 BP 151/63 H 07/25/18 12:52 Pulse Ox 90 L 07/25/18 12:52 Weight - Most Recent: 118.569 kg I&O - Last 24 hours: Intake & Output 07/26/18 07/27/18 07/27/18 22:59 06:59 14:59 Intake Total 0 Output Total 300 525 Balance -300 -525 LOUISE Results - Last 24 hrs: Microbiology 07/23/18 20:41 Aerobic Blood Culture - Preliminary Blood - Venous - Lab Draw NO GROWTH AFTER 3 DAYS Anaerobic Blood Culture - Final 07/23/18 20:30 Aerobic Blood Culture - Preliminary Blood - Venous NO GROWTH AFTER 3 DAYS Anaerobic Blood Culture - Preliminary NO GROWTH AFTER 3 DAYS Med Orders - Current: Current Medications Lorazepam (Ativan) 3 mg IVPUSH Q4H PRN PRN Reason: Anxiety Last Admin: 07/25/18 20:50 Dose: 3 mg Miscellaneous Information (Remove Patch) 0 ea TRDERM ASDIRECTED [facility] Morphine Sulfate (Morphine) 2 mg IVPUSH Q3H PRN PRN Reason: Dyspnea Last Admin: 07/26/18 17:05 Dose: 2 mg Scopolamine (Transderm-Scop) 1.5 mg TRDERM Q72H PRN PRN Reason: secretions Discontinued Medications Albuterol (Proventil Neb Soln) 2.5 mg NEB Q4HRRT [facility] Albuterol (Proventil Neb Soln) 2.5 mg NEB Q4HRRT PRN PRN Reason: Shortness of Breath Last Admin: 07/25/18 04:52 Dose: 2.5 mg Albuterol/Ipratropium (Duoneb 3.0-0.5 Mg/3 Ml) 3 ml NEB ONETIME ONE Stop: 07/23/18 15:48 Last Admin: 07/23/18 16:00 Dose: 3 ml Albuterol/Ipratropium (Duoneb 3.0-0.5 Mg/3 Ml) 3 ml NEB QID PRN PRN Reason: Shortness of Breath Albuterol/Ipratropium (Duoneb 3.0-0.5 Mg/3 Ml) 3 ml NEB QID [facility] Albuterol/Ipratropium (Duoneb 3.0-0.5 Mg/3 Ml) 3 ml NEB QIDRT [facility] Last Admin: 07/25/18 10:50 Dose: 3 ml Allopurinol (Zyloprim) 300 mg PO DAILY [facility] Last Admin: 07/25/18 08:27 Dose: Not Given Calcitriol (Rocaltrol) 0.5 mcg PO QPM [facility] Last Admin: 07/24/18 17:38 Dose: Not Given Carvedilol (Coreg) 12.5 mg PO BID [facility] Last Admin: 07/25/18 08:27 Dose: Not Given Citalopram Hydrobromide (Celexa) 20 mg PO DAILY [facility] Last Admin: 07/25/18 08:27 Dose: Not Given Donepezil HCl (Aricept) 5 mg PO DAILY [facility] Last Admin: 07/25/18 08:26 Dose: Not Given Famotidine (Pepcid) 20 mg IVPUSH BID [facility] Last Admin: 07/25/18 09:55 Dose: 20 mg Fenofibrate (Tricor) 145 mg PO DAILY [facility] Last Admin: 07/25/18 08:27 Dose: Not Given Ferrous Sulfate (Ferrous Sulfate) 325 mg PO DAILY [facility] Last Admin: 07/25/18 08:27 Dose: Not Given Furosemide (Lasix) 40 mg IVPUSH NOW ONE Stop: 07/23/18 18:17 Last Admin: 07/23/18 18:41 Dose: 40 mg Haloperidol Lactate (Haldol) 2.5 mg IVPUSH ONETIME ONE Stop: 07/24/18 13:31 Last Admin: 07/24/18 15:12 Dose: 2.5 mg Haloperidol Lactate (Haldol) 5 mg IVPUSH ONETIME ONE Stop: 07/24/18 20:43 Last Admin: 07/24/18 20:43 Dose: 5 mg Haloperidol Lactate (Haldol) Confirm Administered Dose 5 mg .ROUTE .STK-MED ONE Stop: 07/25/18 01:18 Last Admin: 07/25/18 01:33 Dose: Not Given Haloperidol Lactate (Haldol) 5 mg IVPUSH ONETIME ONE Stop: 07/25/18 01:31 Last Admin: 07/25/18 01:35 Dose: 5 mg Furosemide 100 mg/ Sodium (Chloride) 100 mls @ 4 mls/hr IV TITRATE [facility]; Protocol Last Admin: 07/24/18 16:24 Dose: 4 mg/hr, 4 mls/hr Azithromycin 500 mg/ Sodium (Chloride) 250 mls @ 250 mls/hr IV Q24H [facility] Last Admin: 07/24/18 12:13 Dose: Not Given Ceftriaxone Sodium 2 gm/ (Sodium Chloride) 100 mls @ 200 mls/hr IV Q24H [facility] Last Admin: 07/24/18 12:14 Dose: Not Given Ceftriaxone Sodium 2 gm/ (Sodium Chloride) 100 mls @ 200 mls/hr IV Q24H [facility] Last Admin: 07/24/18 14:21 Dose: 200 mls/hr Azithromycin 500 mg/ Sodium (Chloride) 250 mls @ 250 mls/hr IV Q24H [facility] Last Admin: 07/24/18 14:51 Dose: 250 mls/hr Phytonadione 2.5 mg/ Sodium (Chloride) 50.25 mls @ 100 mls/hr IV NOW ONE Stop: 07/24/18 21:22 Last Admin: 07/24/18 21:20 Dose: 100 mls/hr Levothyroxine Sodium (Synthroid) 88 mcg PO [id number] [facility] Last Admin: 07/25/18 05:39 Dose: Not Given Lorazepam (Ativan) 1 mg IVPUSH ONETIME ONE Stop: 07/23/18 18:11 Last Admin: 07/23/18 18:18 Dose: 1 mg Lorazepam (Ativan) 0.5 mg PO DAILY [facility] Last Admin: 07/25/18 08:26 Dose: Not Given Lorazepam (Ativan) 1 mg IVPUSH ONETIME ONE Stop: 07/23/18 21:15 Last Admin: 07/23/18 23:30 Dose: 1 mg Lorazepam (Ativan) 1 mg IVPUSH Q8H PRN PRN Reason: Anxiety Last Admin: 07/24/18 06:20 Dose: 1 mg Lorazepam (Ativan) 2 mg IVPUSH STAT ONE Stop: 07/24/18 07:43 Last Admin: 07/24/18 07:46 Dose: 2 mg Lorazepam (Ativan) 2 mg IVPUSH Q4H PRN PRN Reason: Anxiety Last Admin: 07/25/18 12:23 Dose: 2 mg Lorazepam (Ativan) 2 mg IVPUSH Q4H PRN PRN Reason: Seizures Lorazepam (Ativan) 2 mg IVPUSH ONETIME ONE Stop: 07/25/18 14:04 Last Admin: 07/25/18 14:34 Dose: Not Given Lorazepam (Ativan) 2 mg IVPUSH ONETIME ONE Stop: 07/25/18 14:31 Last Admin: 07/25/18 14:28 Dose: 2 mg Morphine Sulfate (Morphine) 2 mg IVPUSH ONETIME ONE Stop: 07/23/18 21:14 Last Admin: 07/23/18 21:24 Dose: 2 mg Morphine Sulfate (Morphine) 2 mg IVPUSH Q4H PRN PRN Reason: Shortness of Breath Last Admin: 07/24/18 05:36 Dose: 2 mg Oseltamivir Phosphate (Tamiflu) 75 mg PO ONETIME ONE Stop: 07/23/18 18:17 Last Admin: 07/23/18 18:41 Dose: 75 mg Oseltamivir Phosphate (Tamiflu) 75 mg PO BID [facility] Last Admin: 07/23/18 21:15 Dose: Not Given Oseltamivir Phosphate (Tamiflu) 75 mg PO BID [facility] Last Admin: 07/25/18 08:27 Dose: Not Given Phenytoin Sodium (Phenytoin) 400 mg PO QPM [facility] Last Admin: 07/24/18 17:38 Dose: Not Given Phytonadione (Aquamephyton) 2.5 mg IM ONETIME ONE Stop: 07/24/18 14:58 Last Admin: 07/24/18 15:33 Dose: 2.5 mg Phytonadione (Aquamephyton) 2.5 mg SUBCUT ONETIME ONE Stop: 07/25/18 11:01 Last Admin: 07/25/18 11:39 Dose: 2.5 mg Potassium Chloride (Klor-Con M20) 40 meq PO BID [facility] Sertraline HCl (Zoloft) 50 mg PO DAILY [facility] Last Admin: 07/25/18 08:27 Dose: Not Given Simvastatin (Zocor) 20 mg PO BEDTIME [facility] Last Admin: 07/24/18 21:21 Dose: Not Given Sodium Chloride (Saline Flush) 10 ml FLUSH ASDIRECTED PRN PRN Reason: Keep Vein Open Last Admin: 07/23/18 16:23 Dose: 10 ml Warfarin Sodium ([facility]madin) [facility] Warfarin Sodium (Coumadin) 7.5 mg PO [facility] - Exam Physical Findings Comments:: Notified by nursing that they believed Tera had passed. In room found patient found pulseless and apneic. Nursing reports his internal defibrillator had apparently gone off a few times while they were in there. Auscultated and palpated for a pulse for 2 minutes with nothing noted. Time of called at 808. Nursing notifies family as there are none at bedside. Patient was comfort care. <Jimmie Velazquez T - Last Filed: 08/05/18 07:17> Discharge Summary - Hospital Course Modified [place] Scale: Mod.Sev.Disability ;Unable to Walk/Attend Bodily Needs W/ O Assistance Modified Marcin Scale Score: 4 - Discharge Diagnosis/Problem(s) (1) Respiratory failure with hypercapnia SNOMED Code(s): 330752150 ICD Code: J96.92 - RESPIRATORY FAILURE, UNSPECIFIED WITH HYPERCAPNIA Status : Acute Qualifiers: Chronicity: acute Qualified Code(s): J96.02 - Acute respiratory failure with hypercapnia (2) Compression atelectasis SNOMED Code(s): 45835578 ICD Code: J98.11 - ATELECTASIS Status: Acute (3) Supratherapeutic international normalized ratio (INR) SNOMED Code(s): 609450630 ICD Code: R79.1 - ABNORMAL COAGULATION PROFILE Status: Acute (4) Comfort measures only status SNOMED Code(s): 35637935189017 ICD Code: Z51.5 - ENCOUNTER FOR PALLIATIVE CARE Status: Acute (5) Congestive heart failure SNOMED Code(s): 65955241 ICD Code: I50.9 - HEART FAILURE, UNSPECIFIED Status: Acute Qualifiers: Heart failure type: combined systolic and diastolic Heart failure chronicity: acute on chronic Qualified Code(s): I50.43 - Acute on chronic combined systolic (congestive) and diastolic (congestive) heart failure (6) Pleural effusion SNOMED Code(s): 16369680 ICD Code: J90 - PLEURAL EFFUSION, NOT ELSEWHERE CLASSIFIED Status: Acute (7) Anxiety, generalized SNOMED Code(s): 39358438 ICD Code: F41.1 - GENERALIZED ANXIETY DISORDER Status: Acute (8) Shortness of breath SNOMED Code(s): 002550899 ICD Code: R06.02 - SHORTNESS OF BREATH Status: Acute (9) End of life care SNOMED Code(s): 627332756, 653373166 ICD Code: Z51.5 - ENCOUNTER FOR PALLIATIVE CARE Status: Acute - Patient Summary/Data Operative Procedure(s) Performed: None Complications: None Consults: Consultations 07/23/18 19:29 Consult to Case Management/Service Mechanic [CONS] Routine 07/25/18 14:11 Consult to End of Life Care [Consult to Palliative Care] [CONS] Routine Consult to Hospice [CONS] Routine Labs Pending at D/C: None Recommended Follow-up Testing/Procedures: None Planned Operative Procedure(s) after DC: None Hospital Course: Patient was primarily admitted for worsening shortness of breath and was diagnosed with probable congestive heart failure associated with left sided pleural effusion. His symptom further complicated by his non-compliance as well as lack of understanding due to his underlying intellectual disability and therefore he continued to decline clinically. He could not stay calm and follow simple instructions. When his O2 saturation dropped in the 60s-70s, we quickly put him on supplemental O2 gradually increasing it until he required BIPAP. Unfortunately, he could not keep it on and without therapeutic thoracentesis he continued to suffer respiratory failure. He did however receive heart failure treatment and aggressive pulmonary care immediately upon presentation to the hospital; we continued that as soon we was transferred to the unit. We held his warfarin and gave him Vit K in anticipation for thoracentesis procedure after change of hospitalist provider. However, his sister, who was his DPOA, decided against it and chose to make him comfort measures instead. We respected her decisions and thereafter we simply followed her guidance in taking good care of her brother besides having him on comfort measures protocol. Regrettably the patient did not make it for long-term placement as he , peacefully and comfortably at bedside under the care of the compassionate nurses of the medical-surgical floor. - Discharge Summary/Plan Comment DC Time >30 min.: No Discharge Summary/Plan Comment: Discharge to appropriate homes for processing - Review of Systems Systems Review Comment: Unable to obtain. Patient . - Patient Data Vitals - Most Recent: Last Vital Signs Temp 36.6 C 07/25/18 08:00 Pulse 69 07/25/18 12:52 Resp 29 H 07/25/18 12:52 BP 151/63 H 07/25/18 12:52 Pulse Ox 90 L 07/25/18 12:52 Med Orders - Current: Current Medications Discontinued Medications Albuterol (Proventil Neb Soln) 2.5 mg NEB Q4HRRT [facility] Albuterol (Proventil Neb Soln) 2.5 mg NEB Q4HRRT PRN PRN Reason: Shortness of Breath Last Admin: 07/25/18 04:52 Dose: 2.5 mg Albuterol/Ipratropium (Duoneb 3.0-0.5 Mg/3 Ml) 3 ml NEB ONETIME ONE Stop: 07/23/18 15:48 Last Admin: 07/23/18 16:00 Dose: 3 ml Albuterol/Ipratropium (Duoneb 3.0-0.5 Mg/3 Ml) 3 ml NEB QID PRN PRN Reason: Shortness of Breath Albuterol/Ipratropium (Duoneb 3.0-0.5 Mg/3 Ml) 3 ml NEB QID [facility] Albuterol/Ipratropium (Duoneb 3.0-0.5 Mg/3 Ml) 3 ml NEB QIDRT [facility] Last Admin: 07/25/18 10:50 Dose: 3 ml Allopurinol (Zyloprim) 300 mg PO DAILY [facility] Last Admin: 07/25/18 08:27 Dose: Not Given Calcitriol (Rocaltrol) 0.5 mcg PO QPM [facility] Last Admin: 07/24/18 17:38 Dose: Not Given Carvedilol (Coreg) 12.5 mg PO BID [facility] Last Admin: 07/25/18 08:27 Dose: Not Given Citalopram Hydrobromide (Celexa) 20 mg PO DAILY [facility] Last Admin: 07/25/18 08:27 Dose: Not Given Donepezil HCl (Aricept) 5 mg PO DAILY [facility] Last Admin: 07/25/18 08:26 Dose: Not Given Famotidine (Pepcid) 20 mg IVPUSH BID [facility] Last Admin: 07/25/18 09:55 Dose: 20 mg Fenofibrate (Tricor) 145 mg PO DAILY [facility] Last Admin: 07/25/18 08:27 Dose: Not Given Ferrous Sulfate (Ferrous Sulfate) 325 mg PO DAILY [facility] Last Admin: 07/25/18 08:27 Dose: Not Given Furosemide (Lasix) 40 mg IVPUSH NOW ONE Stop: 07/23/18 18:17 Last Admin: 07/23/18 18:41 Dose: 40 mg Haloperidol Lactate (Haldol) 2.5 mg IVPUSH ONETIME ONE Stop: 07/24/18 13:31 Last Admin: 07/24/18 15:12 Dose: 2.5 mg Haloperidol Lactate (Haldol) 5 mg IVPUSH ONETIME ONE Stop: 07/24/18 20:43 Last Admin: 07/24/18 20:43 Dose: 5 mg Haloperidol Lactate (Haldol) Confirm Administered Dose 5 mg .ROUTE .STK-MED ONE Stop: 07/25/18 01:18 Last Admin: 07/25/18 01:33 Dose: Not Given Haloperidol Lactate (Haldol) 5 mg IVPUSH ONETIME ONE Stop: 07/25/18 01:31 Last Admin: 07/25/18 01:35 Dose: 5 mg Furosemide 100 mg/ Sodium (Chloride) 100 mls @ 4 mls/hr IV TITRATE [facility]; Protocol Last Admin: 07/24/18 16:24 Dose: 4 mg/hr, 4 mls/hr Azithromycin 500 mg/ Sodium (Chloride) 250 mls @ 250 mls/hr IV Q24H [facility] Last Admin: 07/24/18 12:13 Dose: Not Given Ceftriaxone Sodium 2 gm/ (Sodium Chloride) 100 mls @ 200 mls/hr IV Q24H [facility] Last Admin: 07/24/18 12:14 Dose: Not Given Ceftriaxone Sodium 2 gm/ (Sodium Chloride) 100 mls @ 200 mls/hr IV Q24H [facility] Last Admin: 07/24/18 14:21 Dose: 200 mls/hr Azithromycin 500 mg/ Sodium (Chloride) 250 mls @ 250 mls/hr IV Q24H [facility] Last Admin: 07/24/18 14:51 Dose: 250 mls/hr Phytonadione 2.5 mg/ Sodium (Chloride) 50.25 mls @ 100 mls/hr IV NOW ONE Stop: 07/24/18 21:22 Last Admin: 07/24/18 21:20 Dose: 100 mls/hr Levothyroxine Sodium (Synthroid) 88 mcg PO [id number] [facility] Last Admin: 07/25/18 05:39 Dose: Not Given Lorazepam (Ativan) 1 mg IVPUSH ONETIME ONE Stop: 07/23/18 18:11 Last Admin: 07/23/18 18:18 Dose: 1 mg Lorazepam (Ativan) 0.5 mg PO DAILY [facility] Last Admin: 07/25/18 08:26 Dose: Not Given Lorazepam (Ativan) 1 mg IVPUSH ONETIME ONE Stop: 07/23/18 21:15 Last Admin: 07/23/18 23:30 Dose: 1 mg Lorazepam (Ativan) 1 mg IVPUSH Q8H PRN PRN Reason: Anxiety Last Admin: 07/24/18 06:20 Dose: 1 mg Lorazepam (Ativan) 2 mg IVPUSH STAT ONE Stop: 07/24/18 07:43 Last Admin: 07/24/18 07:46 Dose: 2 mg Lorazepam (Ativan) 2 mg IVPUSH Q4H PRN PRN Reason: Anxiety Last Admin: 07/25/18 12:23 Dose: 2 mg Lorazepam (Ativan) 2 mg IVPUSH Q4H PRN PRN Reason: Seizures Lorazepam (Ativan) 2 mg IVPUSH ONETIME ONE Stop: 07/25/18 14:04 Last Admin: 07/25/18 14:34 Dose: Not Given Lorazepam (Ativan) 3 mg IVPUSH Q4H PRN PRN Reason: Anxiety Last Admin: 07/25/18 20:50 Dose: 3 mg Lorazepam (Ativan) 2 mg IVPUSH ONETIME ONE Stop: 07/25/18 14:31 Last Admin: 07/25/18 14:28 Dose: 2 mg Miscellaneous Information (Remove Patch) 0 ea TRDERM ASDIRECTED [facility] Morphine Sulfate (Morphine) 2 mg IVPUSH ONETIME ONE Stop: 07/23/18 21:14 Last Admin: 07/23/18 21:24 Dose: 2 mg Morphine Sulfate (Morphine) 2 mg IVPUSH Q4H PRN PRN Reason: Shortness of Breath Last Admin: 07/24/18 05:36 Dose: 2 mg Morphine Sulfate (Morphine) 2 mg IVPUSH Q3H PRN PRN Reason: Dyspnea Last Admin: 07/26/18 17:05 Dose: 2 mg Oseltamivir Phosphate (Tamiflu) 75 mg PO ONETIME ONE Stop: 07/23/18 18:17 Last Admin: 07/23/18 18:41 Dose: 75 mg Oseltamivir Phosphate (Tamiflu) 75 mg PO BID [facility] Last Admin: 07/23/18 21:15 Dose: Not Given Oseltamivir Phosphate (Tamiflu) 75 mg PO BID [facility] Last Admin: 07/25/18 08:27 Dose: Not Given Phenytoin Sodium (Phenytoin) 400 mg PO QPM [facility] Last Admin: 07/24/18 17:38 Dose: Not Given Phytonadione (Aquamephyton) 2.5 mg IM ONETIME ONE Stop: 07/24/18 14:58 Last Admin: 07/24/18 15:33 Dose: 2.5 mg Phytonadione (Aquamephyton) 2.5 mg SUBCUT ONETIME ONE Stop: 07/25/18 11:01 Last Admin: 07/25/18 11:39 Dose: 2.5 mg Potassium Chloride (Klor-Con M20) 40 meq PO BID [facility] Scopolamine (Transderm-Scop) 1.5 mg TRDERM Q72H PRN PRN Reason: secretions Sertraline HCl (Zoloft) 50 mg PO DAILY [facility] Last Admin: 07/25/18 08:27 Dose: Not Given Simvastatin (Zocor) 20 mg PO BEDTIME [facility] Last Admin: 07/24/18 21:21 Dose: Not Given Sodium Chloride (Saline Flush) 10 ml FLUSH ASDIRECTED PRN PRN Reason: Keep Vein Open Last Admin: 07/23/18 16:23 Dose: 10 ml Warfarin Sodium (Coumadin) 5 mg PO SUMOTUTHFR [facility] Warfarin Sodium (Coumadin) 7.5 mg PO W[facility]A [facility] - Exam Physical Findings Comments:: Patient is not moving. No heart and lung sounds on auscultations. He does not respond to verbal and manual stimuli.
== END 2018-07-27 08:08 | disposition expired | DRG 291 ==
LOC: JD.ED 15:03 → JD.ICU 18:43 → JD.MS 07-26 20:54
PROVIDERS: ADMIT Internal Medicine Cardiovascular Disease; ATTEND Internal Medicine Cardiovascular Disease
PROC: 5A09457 Assistance with Respiratory Ventilation, 24-96 Consecutive Hours, Continuous Positive Airway Pressure (ICD-10-PCS; principal; 2018-07-24)
DX: I11.0 Hypertensive heart disease with heart failure (principal); J96.02 Acute respiratory failure with hypercapnia; J96.01 Acute respiratory failure with hypoxia; F03.91 Unspecified dementia, unspecified severity, with behavioral disturbance; J98.11 Atelectasis; I48.91 Unspecified atrial fibrillation; J10.1 Influenza due to other identified influenza virus with other respiratory manifestations; I50.43 Acute on chronic combined systolic (congestive) and diastolic (congestive) heart failure; Z66 Do not resuscitate; Z51.5 Encounter for palliative care; F41.9 Anxiety disorder, unspecified; E03.9 Hypothyroidism, unspecified; F03.90 Unspecified dementia, unspecified severity, without behavioral disturbance, psychotic disturbance, mood disturbance, and anxiety; G40.909 Epilepsy, unspecified, not intractable, without status epilepticus; E78.00 Pure hypercholesterolemia, unspecified; K21.9 Gastro-esophageal reflux disease without esophagitis; M19.90 Unspecified osteoarthritis, unspecified site; M10.9 Gout, unspecified; I48.0 Paroxysmal atrial fibrillation; F79 Unspecified intellectual disabilities; R06.2 Wheezing; F32.9 Major depressive disorder, single episode, unspecified; D64.9 Anemia, unspecified; R60.9 Edema, unspecified; M79.605 Pain in left leg; M79.604 Pain in right leg; R42 Dizziness and giddiness; R26.2 Difficulty in walking, not elsewhere classified; R53.1 Weakness; R05 Cough; R06.02 Shortness of breath; J90 Pleural effusion, not elsewhere classified; R79.1 Abnormal coagulation profile; F41.1 Generalized anxiety disorder; E78.5 Hyperlipidemia, unspecified; R15.9 Full incontinence of feces; R32 Unspecified urinary incontinence; H54.7 Unspecified visual loss; L30.9 Dermatitis, unspecified; Z98.49 Cataract extraction status, unspecified eye; Z95.810 Presence of automatic (implantable) cardiac defibrillator; Z79.899 Other long term (current) drug therapy; Z79.01 Long term (current) use of anticoagulants; Z91.19 Patient's noncompliance with other medical treatment and regimen; Z79.890 Hormone replacement therapy
CPT/HCPCS: 36415; 36600; 71045; 80053; 82803; 83880; 85007; 85027; 85610; 86738; 87804 ×2; 93005; 94640; 94660; A9270; J1940; J2060; 80048; 80061; 81001; 83605; 84443; 84484; 85025; 86140; 87040; 87086; 87486; 87581; 87632; 87798; 87899; 93010; 94760; 99285; J0456; J0696; J1630; J2270; J3430; J3490; J7030; J7050; J7620-GY